=== PATIENT | female | born 1985 | race American Indian/Alaskan Native ===

== ENCOUNTER 2016-09-02 20:15 | Emergency (ER) | payer BC ==
[2016-09-02 21:13] LABS: Basophils % (Auto) 0.4 % (0.0-1.8); Eosinophils % (Auto) 3.8 % (0.0-4.3); Hematocrit 40.6 % (30.3-42.9); Hemoglobin 13.8 gm/dl (10.1-14.3); Mean Corpuscular HGB Conc 34 % (30-34); Mean Corpuscular Hemoglobin 34 pg (28-32); Mean Corpuscular Volume 101 fl (79-97); Platelet Count 167 K/mm3 (140-440); Red Blood Count 4.03 M/mm3 (3.65-5.03); Red Cell Distribution Width 12.5 % (13.2-15.2); White Blood Count 6.7 K/mm3 (4.5-11.0)
[2016-09-02 21:29] LABS: Anion Gap 18 mmol/L; Blood Urea Nitrogen 15 mg/dL (7-17); Calcium 9.3 mg/dL (8.4-10.2); Carbon Dioxide 24 mmol/L (22-30); Glucose 75 mg/dL (65-100); Potassium 3.4 mmol/L (3.6-5.0); Sodium 140 mmol/L (137-145)
[2016-09-03 00:38] VITALS: BP 101/64
[2016-09-03 00:59] LABS: Bacteria,Urine 1+ /HPF (Negative); Bilirubin,Urine NEG (Negative); Blood,Urine NEG (Negative); Ketones,Urine NEG (Negative); Leukocyte Esterase,Urine NEG (Negative); Mucus,Urine 3+ /HPF; Nitrite,Urine POS (Negative); Protein,Urine <15 mg/dL mg/dL (Negative); Urobilinogen,Urine < 2.0 mg/dL (<2.0)
[2016-09-03] MEDS ORDERED: TYLENOL PO ONE (01:47)
--- NOTE | 2016-09-04 00:15 | ED Elopement Review ---
ED Pt Elopement review - Results review Lab results: Laboratory Tests 09/02/16 09/02/16 09/03/16 20:54 20:54 00:12 WBC 6.7 RBC 4.03 Hgb 13.8 Hct 40.6 MCV 101 H MCH 34 H MCHC 34 RDW 12.5 L Plt Count 167 Lymph % (Auto) 38.4 H [place] % (Auto) 8.7 H Eos % (Auto) 3.8 Baso % (Auto) 0.4 Lymph # 2.6 [place] # 0.6 Eos # 0.3 Baso # 0.0 Seg Neutrophils % 48.7 Seg Neutrophils # 3.2 Sodium 140 Potassium 3.4 L Chloride 101.0 Carbon Dioxide 24 Anion Gap 18 BUN 15 Creatinine 0.4 L Estimated GFR > 60 BUN/Creatinine Ratio 37.50 Glucose 75 Calcium 9.3 Urine Color Yellow Urine Turbidity Slightly-cloudy Urine pH 6.0 Ur Specific [place] 1.021 Urine Protein <15 mg/dl Urine Glucose (UA) Neg Urine Ketones Neg Urine Blood Neg Urine Nitrite Pos Urine Bilirubin Neg Urine Urobilinogen < 2.0 Ur Leukocyte Esterase Neg Urine WBC (Auto) 8.0 H Urine RBC (Auto) 3.0 U Epithel Cells (Auto) 2.0 Urine Bacteria (Auto) 1+ Calcium Oxalate Crystal Few Urine Mucus 3+ Urine HCG, Qual Negative - Call Back decision Pt Call Back Decision: No action required
== END 2016-09-03 00:35 | disposition left against medical advice (07) ==
LOC: ED 20:15
DX: R10.9 Unspecified abdominal pain (principal); M54.6 Pain in thoracic spine; J45.909 Unspecified asthma, uncomplicated; F17.200 Nicotine dependence, unspecified, uncomplicated; Z53.21 Procedure and treatment not carried out due to patient leaving prior to being seen by health care provider
CPT/HCPCS: 36415; 80048; 81001; 81025; 85025

== ENCOUNTER 2016-09-15 17:30 | Emergency (ER) | payer BC ==
[2016-09-15 19:52] LABS: Basophils % (Auto) 0.7 % (0.0-1.8); Eosinophils % (Auto) 2.5 % (0.0-4.3); Hematocrit 39.7 % (30.3-42.9); Hemoglobin 13.8 gm/dl (10.1-14.3); Mean Corpuscular HGB Conc 35 % (30-34); Mean Corpuscular Hemoglobin 35 pg (28-32); Mean Corpuscular Volume 101 fl (79-97); Platelet Count 189 K/mm3 (140-440); Red Blood Count 3.93 M/mm3 (3.65-5.03); Red Cell Distribution Width 11.9 % (13.2-15.2); White Blood Count 6.8 K/mm3 (4.5-11.0)
[2016-09-15 19:53] LABS: Bilirubin,Urine NEG (Negative); Blood,Urine SM (Negative); Ketones,Urine NEG (Negative); Leukocyte Esterase,Urine NEG (Negative); Mucus,Urine 1+ /HPF; Nitrite,Urine NEG (Negative); Protein,Urine <15 mg/dL mg/dL (Negative); Urobilinogen,Urine < 2.0 mg/dL (<2.0); WBC,Urine < 1.0 /HPF (0.0-6.0)
[2016-09-15 20:10] LABS: Alanine Aminotransferase 8 units/L (7-56); Albumin 4.8 g/dL (3.9-5); Albumin/Globulin Ratio 2.3 %; Alkaline Phosphatase 59 units/L (35-129); Anion Gap 17 mmol/L; Blood Urea Nitrogen 16 mg/dL (7-17); Calcium 9.2 mg/dL (8.4-10.2); Carbon Dioxide 27 mmol/L (22-30); Chloride 102.4 mmol/L (98-107); Glucose 87 mg/dL (65-100); Potassium 3.5 mmol/L (3.6-5.0); Sodium 143 mmol/L (137-145); Total Protein 6.9 g/dL (6.3-8.2)
[2016-09-15] MEDS ORDERED: DILAUDID IV ONE (23:59)
[2016-09-15] MEDS ORDERED: ZOFRAN IV ONE (23:59)
[2016-09-15] MEDS ORDERED: TORADOL IV ONE (23:59)
--- NOTE | 2016-09-15 23:59 | Emergency Department Report ---
ED General Adult HPI - General Chief complaint: Abdominal Pain Stated complaint: BLOOD IN URINE Time Seen by Provider: 09/15/16 23:52 Source: patient, RN notes reviewed, old records reviewed Mode of arrival: Ambulatory Limitations: No Limitations - History of Present Illness Initial comments: This is a 31-year-old female. She is previously unknown to me. Reports a past medical history of nephrolithiasis, has been found to have possible nephrocalcinosis in the past. The patient presents to the ER with bilateral lower back pain. She describes hematuria. She admits to 1-2 episodes of nonbloody, nonbilious emesis. There is mild lower back pain. The pain does not radiate anywhere. There is no fever. Patient denies irritative and obstructive urinary symptoms. The pain is improved with hydromorphone and Toradol. The patient had a CT scan at this hospital January 2016 which was demonstrative bilateral renal calculi, no evidence of obstruction. 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 The patient also complains of pain and swelling to the left great toe, she reports that she has an ingrown toenail. -: Gradual Location: back, left, lower extremity Quality: aching Improves with: medication Worsens with: movement Associated Symptoms: nausea/vomiting. denies: confusion, chest pain, cough, diaphoresis, shortness of breath, syncope, weakness - Related Data Home Medications Medication Instructions Recorded Confirmed Last Taken ALBUTEROL Inhaler [ProAir HFA 2 puff INHALATION Q6H PRN 06/23/16 06/23/16 Unknown Inhaler] Previous Rx's Medication Instructions Recorded Last Taken Type Acetaminophen/Codeine [Tylenol 1 tab PO Q4HR PRN #20 tablet 06/23/16 Unknown Rx /Codeine # 3 tab] Cephalexin [Keflex] 500 mg PO Q6HR #20 capsule 09/16/16 Unknown Rx Ketorolac [Toradol] 10 mg PO Q6H PRN #20 tablet 09/16/16 Unknown Rx Ondansetron [Zofran Odt] 4 mg PO QID PRN #20 tab.rapdis 09/16/16 Unknown Rx oxyCODONE [Roxicodone] 5 mg PO Q6HR PRN #15 tablet 09/16/16 Unknown Rx Allergies Allergy/AdvReac Type Severity Reaction Status Date / Time No Known Allergies Allergy Verified 06/23/16 08:42 ED Review of Systems ROS: Stated complaint: BLOOD IN URINE Other details as noted in HPI ED Past Medical Hx - Past Medical History Previous Medical History?: Yes Hx Renal Disease: Yes Hx Kidney Stones: Yes Hx Asthma: Yes Additional medical history: kidney stones - Surgical History Past Surgical History?: Yes Additional Surgical History: csections x 4. TUBAL LIGATION - Social History Smoking Status: Current Every Day Smoker Substance Use Type: None - Medications Home Medications: Home Medications Medication Instructions Recorded Confirmed Last Taken Type ALBUTEROL Inhaler [ProAir HFA 2 puff INHALATION Q6H PRN 06/23/16 06/23/16 Unknown History Inhaler] Acetaminophen/Codeine [Tylenol 1 tab PO Q4HR PRN #20 tablet 06/23/16 Unknown Rx /Codeine # 3 tab] Cephalexin [Keflex] 500 mg PO Q6HR #20 capsule 09/16/16 Unknown Rx Ketorolac [Toradol] 10 mg PO Q6H PRN #20 tablet 09/16/16 Unknown Rx Ondansetron [Zofran Odt] 4 mg PO QID PRN #20 tab.rapdis 09/16/16 Unknown Rx oxyCODONE [Roxicodone] 5 mg PO Q6HR PRN #15 tablet 09/16/16 Unknown Rx ED Physical Exam - General Limitations: No Limitations General appearance: alert, in distress - Head Head exam: Present: atraumatic, normocephalic - Eye Eye exam: Present: normal appearance, EOMI. Absent: nystagmus - ENT ENT exam: Present: normal exam, normal orophraynx, mucous membranes moist, normal external ear exam - Neck Neck exam: Present: normal inspection, full ROM. Absent: tenderness, meningismus - Respiratory Respiratory exam: Present: normal lung sounds bilaterally. Absent: respiratory distress, wheezes, rales, rhonchi, stridor, chest wall tenderness, accessory muscle use, decreased breath sounds, prolonged expiratory - Cardiovascular Cardiovascular Exam: Present: regular rate, normal rhythm, normal heart sounds. Absent: bradycardia, tachycardia, irregular rhythm, systolic murmur, diastolic murmur, rubs, gallop - GI/Abdominal GI/Abdominal exam: Present: soft, normal bowel sounds. Absent: distended, tenderness, guarding, rebound, rigid, pulsatile mass - Extremities Exam Extremities exam: Present: full ROM (2+ pulses noted in 4 extremities. The compartments are soft. No redness, pus, streaking, crepitus, with the exception of minimal left great toe redness.), normal capillary refill, other ( there is an ingrown toenail noted in the left great toe. There is minimal swelling. There is minimal redness. There is no streaking. The compartments are soft. There is no palpable cord.). Absent: pedal edema, joint swelling, calf tenderness - Back Exam Back exam: Present: normal inspection, full ROM, paraspinal tenderness. Absent : tenderness, CVA tenderness (R), CVA tenderness (L) - Neurological Exam Neurological exam: Present: alert, oriented X3, other (Extraocular movements intact. Tongue midline. No facial droop. Facial sensation intact to light touch in the V1, V2, V3 distribution bilaterally. 5 and 5 strength in 4 extremities.. Sensation is intact to light touch in 4 extremities.). Absent: motor sensory deficit - Psychiatric Psychiatric exam: Present: anxious - Skin Skin exam: Present: warm, dry, intact, normal color. Absent: rash ED Course Vital Signs 09/15/16 09/16/16 19:37 00:27 Temperature 98.5 F 98.1 F Pulse Rate 90 95 H Respiratory 20 18 Rate Blood Pressure 103/67 Blood Pressure 110/72 [Right] O2 Sat by Pulse 100 99 Oximetry - Reevaluation(s) Reevaluation #1: 09/16/16 00:53 Differential diagnosis: Renal colic, medullary calcinosis, urinary tract infection, mechanical back pain, ingrown left great toe Assessment and plan: 31-year-old female with reported history of kidney stones. She is afebrile with reassuring vital signs. She is tolerating liquid feeds. Her laboratory studies are unremarkable, urinalysis is not consistent with urinary tract infection. Her abdomen is soft and benign, with no rebound, guarding or peritoneal signs. Has minimal left ingrown toenail. The patient felt improved after symptomatically therapy. She will be discharged with pain medication, nausea medication, instructions to follow up with outpatient podiatry and primary care. She can also follow up with urology at her convenience. I don't believe she requires advanced imaging today her current clinical presentation and status. ED Medical Decision Making - Lab Data Result diagrams: 09/15/16 19:42 09/15/16 19:42 Vital Signs 09/15/16 09/16/16 19:37 00:27 Temperature 98.5 F 98.1 F Pulse Rate 90 95 H Respiratory 20 18 Rate Blood Pressure 103/67 Blood Pressure 110/72 [Right] O2 Sat by Pulse 100 99 Oximetry Lab Results 09/15/16 09/15/16 09/15/16 Range/Units 19:00 19:42 19:42 WBC 6.8 (4.5-11.0) K/mm3 RBC 3.93 (3.65-5.03) M/mm3 Hgb 13.8 (10.1-14.3) gm/dl Hct 39.7 (30.3-42.9) % MCV 101 H (79-97) fl MCH 35 H (28-32) pg MCHC 35 H (30-34) % RDW 11.9 L (13.2-15.2) % Plt Count 189 (140-440) K/mm3 Lymph % (Auto) 35.2 H (13.4-35.0) % [place] % (Auto) 4.7 (0.0-7.3) % Eos % (Auto) 2.5 (0.0-4.3) % Baso % (Auto) 0.7 (0.0-1.8) % Lymph # 2.4 (1.2-5.4) K/mm3 [place] # 0.3 (0.0-0.8) K/mm3 Eos # 0.2 (0.0-0.4) K/mm3 Baso # 0.0 (0.0-0.1) K/mm3 Seg Neutrophils % 56.9 (40.0-70.0) % Seg Neutrophils # 3.9 (1.8-7.7) K/mm3 Sodium 143 (137-145) mmol/L Potassium 3.5 L (3.6-5.0) mmol/L Chloride 102.4 (98-107) mmol/L Carbon Dioxide 27 (22-30) mmol/L Anion Gap 17 mmol/L BUN 16 (7-17) mg/dL Creatinine 0.5 L (0.7-1.2) mg/dL Estimated GFR > 60 ml/min BUN/Creatinine Ratio 32.00 % Glucose 87 (65-100) mg/dL Calcium 9.2 (8.4-10.2) mg/dL Total Bilirubin 0.20 (0.1-1.2) mg/dL AST 12 (5-40) units/L ALT 8 (7-56) units/L Alkaline Phosphatase 59 (35-129) units/L Total Protein 6.9 (6.3-8.2) g/dL Albumin 4.8 (3.9-5) g/dL Albumin/Globulin Ratio 2.3 % Urine Color Yellow (Yellow) Urine Turbidity Clear (Clear) Urine pH 5.0 (5.0-7.0) Ur Specific [place] 1.026 (1.003-1.030) Urine Protein <15 mg/dl (Negative) mg/dL Urine Glucose (UA) Neg (Negative) mg/dL Urine Ketones Neg (Negative) mg/dL Urine Blood Sm (Negative) Urine Nitrite Neg (Negative) Urine Bilirubin Neg (Negative) Urine Urobilinogen < 2.0 (<2.0) mg/dL Ur Leukocyte Esterase Neg (Negative) Urine WBC (Auto) < 1.0 (0.0-6.0) /HPF Urine RBC (Auto) 1.0 (0.0-6.0) /HPF U Epithel Cells (Auto) 3.0 (0-13.0) /HPF Calcium Oxalate Crystal Few Urine Mucus 1+ /HPF Urine HCG, Qual Negative (Negative) Critical care attestation.: If time is entered above; I have spent that time in minutes in the direct care of this critically ill patient, excluding procedure time. ED Disposition Clinical Impression: Back pain, Toe pain, left Disposition: DISCHARGED TO HOME OR SELFCARE Is pt being admited?: No Does the pt Need Aspirin: No Condition: Stable Instructions: Renal Colic (ED), Ingrown Nail (ED) Additional Instructions: Laboratory studies were unremarkable. They are not consistent with or urinary tract infection. Take the pain medication, nausea medication, antibiotic therapy as directed. Apply warm soaks to the left great toe as often as as needed. Follow up with a health director within the next week for the left great toe. Dr. Monaco is a local health director. Return to the ER right away with new pain, worsened pain, migration of pain, fevers or chills, intractable nausea or vomiting, inability to tolerate liquid feeds. If taking oxycodone, do not drive, consume alcohol, or make important decisions. Referrals: TREVON LEO MD [Primary Care Provider] - 3-5 Days EDEN MONACO DPM [Staff Physician] - 3-5 Days NAZARIO FELIX MD [Staff Physician] - 3-5 Days
[2016-09-16] MEDS ORDERED: ROXICODONE PO ONE (00:34)
[2016-09-16 01:45] VITALS: BP 112/76
== END 2016-09-16 01:43 | disposition home or self-care (01) ==
LOC: ED 17:30
DX: M54.5 Low back pain (principal); M79.675 Pain in left toe(s); J45.909 Unspecified asthma, uncomplicated; F17.200 Nicotine dependence, unspecified, uncomplicated
CPT/HCPCS: 36415; 80053; 81001; 81025; 85025; 96374; 96375; 99283; J1170; J1885; J2405

== ENCOUNTER 2016-09-16 07:30 | Emergency (ER) | payer BC ==
--- NOTE | 2016-09-16 10:51 | Emergency Department Report ---
- General Chief complaint: Extremity Problem,Nontraumatic Stated complaint: LFT FOOT SWOLLEN Time Seen by Provider: 09/16/16 10:13 Source: patient, family Mode of arrival: Ambulatory Limitations: No Limitations - History of Present Illness Initial comments: Patient here complaining of Lt great toe pain. She was seen in the emergency room last night for renal colic and left toe pain. Patient was given medication for pain. She was given prescription for Roxicodone, Toradol and Keflex. She was told to follow up with Dr. Monaco is a machinist and also Dr. Osvaldo Davenport who is her primary care physician in 3-5 days. Patient said her pain to her left great toe is unbearable and she had to come back. She says she started on the Toradol and Keflex but she went to [facility] on [address] and he said that didn't that they do not have any Roxicodone said she was unable to take any. She said that she is going to try to find a pharmacy that fill this. Denies any numbness or tingling to toe. Reports that left great toe pain is 9 out of 10 and throbbing. She said it's getting worst and her foot is red. She was told to come back to the emergency room if she has increasing pain so she says associated. Denies any fever or chills. Patient said she took ingrown toenail out 3 days ago at home with tweezer. He said it started getting infected. MD complaint: abscess/boil Onset/Timin -: days(s) Tetanus Up to Date: no Location: L foot (Lt great toe infected and painfil) Severity: severe Severity scale (0 -10): 9 Quality: other (Throbbing) Consistency: constant Improves with: immobilization, medication, rest Worsens with: palpation, movement Context: other (infection from removing ingrown toenail) Associated symptoms: athralgias Treatments Prior to Arrival: antibiotic, prescription analgesic - Related Data Home Medications Medication Instructions Recorded Confirmed Last Taken ALBUTEROL Inhaler [ProAir HFA 2 puff INHALATION Q6H PRN 06/23/16 06/23/16 Unknown Inhaler] Previous Rx's Medication Instructions Recorded Last Taken Type Acetaminophen/Codeine [Tylenol 1 tab PO Q4HR PRN #20 tablet 06/23/16 Unknown Rx /Codeine # 3 tab] Cephalexin [Keflex] 500 mg PO Q6HR #20 capsule 09/16/16 Unknown Rx Ondansetron [Zofran Odt] 4 mg PO QID PRN #20 tab.rapdis 09/16/16 Unknown Rx oxyCODONE [Roxicodone] 5 mg PO Q6HR PRN #15 tablet 09/16/16 Unknown Rx Allergies Allergy/AdvReac Type Severity Reaction Status Date / Time No Known Allergies Allergy Verified 06/23/16 08:42 Abscess Boil HPI - HPI Chief Complaint: Extremity Problem,Nontraumatic Stated Complaint: LFT FOOT SWOLLEN Time Seen by Provider: 09/16/16 10:13 Home Medications: Home Medications Medication Instructions Recorded Confirmed Last Taken ALBUTEROL Inhaler [ProAir HFA 2 puff INHALATION Q6H PRN 06/23/16 06/23/16 Unknown Inhaler] Previous Rx's Medication Instructions Recorded Last Taken Type Acetaminophen/Codeine [Tylenol 1 tab PO Q4HR PRN #20 tablet 06/23/16 Unknown Rx /Codeine # 3 tab] Cephalexin [Keflex] 500 mg PO Q6HR #20 capsule 09/16/16 Unknown Rx Ondansetron [Zofran Odt] 4 mg PO QID PRN #20 tab.rapdis 09/16/16 Unknown Rx oxyCODONE [Roxicodone] 5 mg PO Q6HR PRN #15 tablet 09/16/16 Unknown Rx Allergies/Adverse Reactions: Allergies Allergy/AdvReac Type Severity Reaction Status Date / Time No Known Allergies Allergy Verified 06/23/16 08:42 ED Review of Systems ROS: Stated complaint: LFT FOOT SWOLLEN Other details as noted in HPI Comment: All other systems reviewed and negative Constitutional: denies: chills, fever Eyes: denies: eye pain, vision change ENT: denies: ear pain, throat pain, congestion Respiratory: no symptoms reported Cardiovascular: denies: chest pain, palpitations, syncope, paroxysmal nocturnal dyspnea Gastrointestinal: denies: abdominal pain, nausea, vomiting, constipation, hematemesis Musculoskeletal: joint swelling, arthralgia. denies: back pain Skin: other (abscess). denies: rash Neurological: denies: headache, weakness, numbness, paresthesias, confusion, abnormal gait, vertigo ED Past Medical Hx - Past Medical History Previous Medical History?: Yes Hx Renal Disease: Yes Hx Kidney Stones: Yes Hx Asthma: Yes Additional medical history: kidney stones - Surgical History Past Surgical History?: Yes Additional Surgical History: csections x 4. TUBAL LIGATION - Family History Family history: hypertension - Social History Smoking Status: Current Every Day Smoker Substance Use Type: None - Medications Home Medications: Home Medications Medication Instructions Recorded Confirmed Last Taken Type ALBUTEROL Inhaler [ProAir HFA 2 puff INHALATION Q6H PRN 06/23/16 06/23/16 Unknown History Inhaler] Acetaminophen/Codeine [Tylenol 1 tab PO Q4HR PRN #20 tablet 06/23/16 Unknown Rx /Codeine # 3 tab] Cephalexin [Keflex] 500 mg PO Q6HR #20 capsule 09/16/16 Unknown Rx Ondansetron [Zofran Odt] 4 mg PO QID PRN #20 tab.rapdis 09/16/16 Unknown Rx oxyCODONE [Roxicodone] 5 mg PO Q6HR PRN #15 tablet 09/16/16 Unknown Rx ED Physical Exam - General Limitations: No Limitations General appearance: alert, in no apparent distress - Head Head exam: Present: atraumatic, normocephalic, normal inspection - Eye Eye exam: Present: normal appearance, PERRL, EOMI Pupils: Present: normal accommodation - Neck Neck exam: Present: normal inspection, full ROM. Absent: tenderness, meningismus, lymphadenopathy - Respiratory Respiratory exam: Present: normal lung sounds bilaterally, rhonchi. Absent: respiratory distress, accessory muscle use - Cardiovascular Cardiovascular Exam: Present: regular rate, normal rhythm - GI/Abdominal GI/Abdominal exam: Present: soft, normal bowel sounds. Absent: distended, tenderness, guarding, rebound, rigid - Extremities Exam Extremities exam: Present: normal inspection, full ROM, tenderness (left great toe erythema and tender to palpate), normal capillary refill, joint swelling ( great toe), other (no clubbing cyanosis. Swelling to left great toe. 2+ pedal pulses. No neurovascular compromise). Absent: pedal edema, calf tenderness - Back Exam Back exam: Present: normal inspection, full ROM - Neurological Exam Neurological exam: Present: alert, oriented X3, normal gait - Psychiatric Psychiatric exam: Present: normal affect, normal mood - Skin Skin exam: Present: warm, dry, intact, erythema (left great toe) - Expanded Skin Exam Expanded Type of lesion: Present: abscess (left great toe) Distribution of rash: other (left great toe) Description of rash: Present: tenderness, erythematous, swelling, fluctuant ( mild fluctuance). Absent: purpuic, discharge ED Course Vital Signs 09/16/16 09/16/16 07:39 13:02 Temperature 97.8 F Pulse Rate 78 62 Respiratory 18 Rate Blood Pressure 91/57 Blood Pressure 94/58 [Left] O2 Sat by Pulse 100 97 Oximetry - Reevaluation(s) Reevaluation #1: 09/16/16 12:34 Patient stable throughout ED course. She received Rocephin 1 g IM empirically for infection. She also received tetanus 0.5 ml for update - I & D Left Toe Type of Procedure: Complex Site: left great toe Blade Size: 11 I & D Procedure: betadine prep, sterile drapes applied, sterile dressing applied Progress: See no block. Digital block procedure. Less than 0.25 cm incision made to distal in her left great toe. Small amount of pus. Patient tolerated procedure well and clean dry dressing placed the site. Shee was given tetanus vaccine. no need for packing. - Nerve Block Consent Obtained: verbal consent Time Out Performed: Yes (Romieadaleksandar) Local Anesthetic Used: Marcaine 0.5% (without epinephrine.) Side: left Nerve Blocks: digital Procedure Successful: Yes Complications: none Patient Tolerated Procedure: well, no complications Additional Comments: Left great toe without any ingrown toenail with infection. Small amount of pus from the area. Patient tolerated procedure well ED Medical Decision Making - Medical Decision Making ED course: Patient here after being seen yesterday and treated for renal colic and infected toe. Return to the emergency room complaining that she is having left great toe pain and increased redness and she was unable to fill her Roxicodone. She says she took the first dose of Keflex and Toradol. Patient had ingrown. Toenail she removed herself. Her toe was found to be cellulitis with abscess. Incision and drainage procedure done see procedure note for detail. Patient felt better after digital block. She was given Rocephin 1 g IM and her tetanus shot Boostrix 0.5 mL IM. Patient discharged home to follow- up with her primary care physician in 2-3 days days and also to follow-up with Dr. Monaco is a foot doctor 2-3 days. I instructed her that she can continue with medication that was ordered for her and make sure she increase her fluid intake and keep affected area clean and dry. Also instructed her to apply warm soaks to the area. Patient discharged home with her family in stable condition and pain level II (0 out of 10. Critical care attestation.: If time is entered above; I have spent that time in minutes in the direct care of this critically ill patient, excluding procedure time. ED Disposition Clinical Impression: Cellulitis and abscess of toe of left foot, Encounter for incision and drainage procedure Disposition: DISCHARGED TO HOME OR SELFCARE Is pt being admited?: No Does the pt Need Aspirin: No Condition: Stable Instructions: Abscess Incision and Drainage (ED), Arthralgia (ED) Additional Instructions: Please keep affected area clean and dry Please do not drive or operate machinery while taking and Roxicodone that was prescribed yesterday. Follow-up with Dr. Ellison any primary care physician in 2-3 days. Apply warm soaks to affected area 3-5 times a day. take Antibiotic as prescribed previously. Please stop taking Toradol as this can cause kidney problems and it's noted in the past medical history have a history of kidney disease. take Tylenol and told to get the prescription filled for oxycodone Referrals: OSVALDO DAVENPORT MD [Primary Care Provider] - 2-3 Days EDEN MONACO DPM [Staff Physician] - 2-3 Days Forms: Work/School Release Form(ED)
[2016-09-16] MEDS ORDERED: MARCAINE 0.5% INFILTRATI ONE (10:57)
[2016-09-16] MEDS ORDERED: BENADRYL ONE (11:55)
[2016-09-16] MEDS ORDERED: BENADRYL IM ONE (11:59)
[2016-09-16] MEDS ORDERED: XYLOCAINE 1% MPF 5 mL INFILTRATI ONE (12:14)
[2016-09-16] MEDS ORDERED: ROCEPHIN IM STA (12:14)
[2016-09-16] MEDS ORDERED: BOOSTRIX IM ONE (12:19)
[2016-09-16 13:03] VITALS: BP 94/58
== END 2016-09-16 13:02 | disposition home or self-care (01) ==
LOC: ED 07:30
DX: L03.032 Cellulitis of left toe (principal); J45.909 Unspecified asthma, uncomplicated; F17.200 Nicotine dependence, unspecified, uncomplicated
CPT/HCPCS: 10061; 90471; 90715; 96372; 99282; J0696; J1200

== ENCOUNTER 2017-06-15 08:34 | Emergency (ER) | payer BC | END 2017-06-15 09:25 | disposition left against medical advice (07) | LOC: ED 08:34 | DX: R10.9 Unspecified abdominal pain (principal); Z53.21 Procedure and treatment not carried out due to patient leaving prior to being seen by health care provider ==

== ENCOUNTER 2017-06-23 16:29 | Emergency (ER) | payer BC ==
--- NOTE | 2017-06-23 17:37 | Emergency Department Report ---
Blank Doc - Documentation Documentation: Patient is a 32-year-old female who is presenting with left flank pain for the past 2 days. Patient states she's been nauseous pain is 10 out of 10 in severity. Patient has a history of kidney stones. Patient will be moved to a treatment room and given IV fluids and pain meds and will be sent for an ultrasound to rule out hydronephrosis
[2017-06-23] MEDS ORDERED: ZOFRAN IV ONE (17:38)
[2017-06-23] MEDS ORDERED: NACL 0.9% 1000 ML 1,000 ML IV ONE (17:38)
[2017-06-23] MEDS ORDERED: TORADOL IV ONE (17:38)
[2017-06-23] MEDS: MORPHINE IV ONE ×2 (17:57→19:13)
[2017-06-23 18:00] LABS: HCG Qualitative,Urine Negative (Negative)
[2017-06-23 18:04] LABS: Bilirubin,Urine NEG (Negative); Blood,Urine LG (Negative); Color,Urine Yellow (Yellow); Mucus,Urine 2+ /HPF; Nitrite,Urine NEG (Negative); Protein,Urine <15 mg/dL mg/dL (Negative); Urobilinogen,Urine < 2.0 mg/dL (<2.0)
[2017-06-23 18:22] LABS: Basophils % (Auto) 0.2 % (0.0-1.8); Eosinophils # (Auto) 0.1 K/mm3 (0.0-0.4); Eosinophils % (Auto) 1.3 % (0.0-4.3); Hematocrit 36.2 % (30.3-42.9); Hemoglobin 12.2 gm/dl (10.1-14.3); Lymphocytes # (Auto) 1.2 K/mm3 (1.2-5.4); Lymphocytes % (Auto) 11.1 % (13.4-35.0); Mean Corpuscular HGB Conc 34 % (30-34); Mean Corpuscular Hemoglobin 34 pg (28-32); Mean Corpuscular Volume 101 fl (79-97); Monocytes # (Auto) 0.8 K/mm3 (0.0-0.8); Monocytes % (Auto) 7.6 % (0.0-7.3); Platelet Count 172 K/mm3 (140-440); Red Blood Count 3.58 M/mm3 (3.65-5.03); Red Cell Distribution Width 11.9 % (13.2-15.2)
[2017-06-23 18:42] LABS: BUN/Creatinine Ratio 54; Blood Urea Nitrogen 27 mg/dL (7-17); Calcium 8.3 mg/dL (8.4-10.2); Hemolysis Index 29
--- NOTE | 2017-06-23 19:13 | Ultrasound Report ---
FINAL REPORT EXAM: US RENAL LT HISTORY: probable kidney stones, pain . Left flank pain TECHNIQUE: Ultrasound of the left kidney. The clinician requests left kidney ultrasound only. PRIORS: Ultrasound kidneys 01/23/2016 FINDINGS: The left kidney appears to be normal in size and has normal cortical echogenicity and thickness. The left kidney measures 12.7 cm in craniocaudal length. No evidence for calculi, hydronephrosis, or solid mass is seen in the left. A calculus seen previously in the midpole left kidney is no longer visualized. There is new moderate left-sided hydronephrosis. No definite obstructing calculi or nonobstructing calculi are noted in the left kidney. The urinary bladder shows no intraluminal abnormality or wall thickening. IMPRESSION: 1. New moderate left-sided hydronephrosis. 2. No evidence for obstructing or nonobstructing calculi involving the left kidney is seen. A previously seen calculus in the midpole left kidney is no longer visualized.
--- NOTE | 2017-06-23 19:36 | Emergency Department Report ---
ED Abdominal Pain HPI - General Chief Complaint: Abdominal Pain Stated Complaint: FLANK PAIN Time Seen by Provider: 06/23/17 17:19 Source: patient Mode of arrival: Wheelchair Limitations: No Limitations - History of Present Illness Initial Comments: 32-year-old female comes in for abdominal pain with one set of noon today with left flank pain. Patient reports that she's been to the hospital 3 times this month for abdominal pain. Patient denies any fever but complains of chills and vomiting. She complains of blood in her urine. She reports she is drinking well she tried taking [id number] Azo. She admits to urinary frequency and dysuria. She reports her last menstrual period was 06/02/2017. She reports now her pain is a 6 out of 10 where was 10 out of 10 at triage. She does have a past medical history of kidney stones and asthma. MD Complaint: abdominal pain -: week(s) (2) Location: L flank Radiation: suprapubic Migration to: epigastric Severity scale (0 -10): 6 Quality: aching, sharp, burning Consistency: colicky Improves With: nothing Worsens With: other (voiding) Associated Symptoms: nausea, vomiting, chills - Related Data Home Medications Medication Instructions Recorded Confirmed Last Taken ALBUTEROL Inhaler [ProAir HFA 2 puff INHALATION Q6H PRN 06/23/16 06/23/16 Unknown Inhaler] Previous Rx's Medication Instructions Recorded Last Taken Type Acetaminophen/Codeine [Tylenol 1 tab PO Q4HR PRN #20 tablet 06/23/16 Unknown Rx /Codeine # 3 tab] Cephalexin [Keflex] 500 mg PO Q6HR #20 capsule 09/16/16 Unknown Rx Ondansetron [Zofran Odt] 4 mg PO QID PRN #20 tab.rapdis 09/16/16 Unknown Rx Ondansetron [Zofran Odt] 4 mg PO Q8HR #12 tab.rapdis 06/23/17 Unknown Rx oxyCODONE [Roxicodone TAB] 5 mg PO Q6HR PRN #15 tablet 06/23/17 Unknown Rx Allergies Allergy/AdvReac Type Severity Reaction Status Date / Time No Known Allergies Allergy Verified 06/23/17 16:33 ED Review of Systems ROS: Stated complaint: FLANK PAIN Other details as noted in HPI Constitutional: denies: chills, fever Eyes: denies: eye pain, eye discharge, vision change ENT: denies: ear pain, throat pain Respiratory: denies: cough, shortness of breath, wheezing Cardiovascular: denies: chest pain, palpitations Endocrine: no symptoms reported Gastrointestinal: abdominal pain, nausea, vomiting Genitourinary: urgency, dysuria, frequency, hematuria Musculoskeletal: denies: back pain, joint swelling, arthralgia Skin: denies: rash, lesions Neurological: denies: headache, weakness, paresthesias Psychiatric: denies: anxiety, depression Hematological/Lymphatic: denies: easy bleeding, easy bruising ED Past Medical Hx - Past Medical History Hx Renal Disease: Yes Hx Kidney Stones: Yes Hx Asthma: Yes Additional medical history: kidney stones - Surgical History Additional Surgical History: csections x 4. TUBAL LIGATION - Social History Smoking Status: Current Every Day Smoker Substance Use Type: None - Medications Home Medications: Home Medications Medication Instructions Recorded Confirmed Last Taken Type ALBUTEROL Inhaler [ProAir HFA 2 puff INHALATION Q6H PRN 06/23/16 06/23/16 Unknown History Inhaler] Acetaminophen/Codeine [Tylenol 1 tab PO Q4HR PRN #20 tablet 06/23/16 Unknown Rx /Codeine # 3 tab] Cephalexin [Keflex] 500 mg PO Q6HR #20 capsule 09/16/16 Unknown Rx Ondansetron [Zofran Odt] 4 mg PO QID PRN #20 tab.rapdis 09/16/16 Unknown Rx Ondansetron [Zofran Odt] 4 mg PO Q8HR #12 tab.rapdis 06/23/17 Unknown Rx oxyCODONE [Roxicodone TAB] 5 mg PO Q6HR PRN #15 tablet 06/23/17 Unknown Rx ED Physical Exam - General Limitations: No Limitations General appearance: alert, in no apparent distress - Head Head exam: Present: atraumatic, normocephalic - Eye Eye exam: Present: normal appearance - ENT ENT exam: Present: mucous membranes moist - Neck Neck exam: Present: normal inspection - Respiratory Respiratory exam: Present: normal lung sounds bilaterally. Absent: respiratory distress - Cardiovascular Cardiovascular Exam: Present: regular rate - GI/Abdominal GI/Abdominal exam: Present: soft, normal bowel sounds. Absent: distended, tenderness - Extremities Exam Extremities exam: Present: normal inspection - Back Exam Back exam: Present: normal inspection, CVA tenderness (L) - Neurological Exam Neurological exam: Present: alert, oriented X3 - Psychiatric Psychiatric exam: Present: normal affect, normal mood - Skin Skin exam: Present: warm, dry, intact, normal color. Absent: rash ED Course Vital Signs 06/23/17 06/23/17 16:33 17:57 Temperature 99 F Pulse Rate 120 H Respiratory 22 18 Rate Blood Pressure 137/71 O2 Sat by Pulse 97 Oximetry ED Medical Decision Making - Lab Data Result diagrams: 06/23/17 18:12 06/23/17 18:12 - Radiology Data Radiology results: report reviewed, image reviewed FINDINGS: The left kidney appears to be normal in size and has normal cortical echogenicity and thickness. The left kidney measures 12.7 cm in craniocaudal length. No evidence for calculi, hydronephrosis, or solid mass is seen in the left. A calculus seen previously in the midpole left kidney is no longer visualized. There is new moderate left-sided hydronephrosis. No definite obstructing calculi or nonobstructing calculi are noted in the left kidney. The urinary bladder shows no intraluminal abnormality or wall thickening. IMPRESSION: 1. New moderate left-sided hydronephrosis. 2. No evidence for obstructing or nonobstructing calculi involving the left kidney is seen. A previously seen calculus in the midpole left kidney is no longer visualized. - Medical Decision Making Been evaluated by this provider and Dr. Butler. Patient had an ultrasound done CBC BMP urinalysis urine hCG. Based on ultrasound appears patient had a kidney stone. She also has hydronephrosis of the left kidney I discussed the patient and refer her to clinical athletic instructor as well as her primary care provider. Carmelo patient and she needs to drink plenty of fluids such as water. Patient verbalized understanding Critical care attestation.: If time is entered above; I have spent that time in minutes in the direct care of this critically ill patient, excluding procedure time. ED Disposition Clinical Impression: Kidney stone on left side Disposition: DC-01 TO HOME OR SELFCARE Is pt being admited?: No Does the pt Need Aspirin: No Condition: Stable Instructions: Abdominal Pain (ED), Flank Pain (ED), Kidney Stones (ED) Additional Instructions: Please drink plenty of water. Do not operate heavy machinery while on pain medications. Please follow up with the primary care provider for further evaluation. I will also send you to a clinical athletic instructor as well for chronic kidney stones. Prescriptions: Ondansetron [Zofran Odt] 4 mg PO Q8HR #12 tab.rapdis oxyCODONE [Roxicodone TAB] 5 mg PO Q6HR PRN #15 tablet PRN Reason: Pain Referrals: PRIMARY CARE, [Primary Care Provider] - 3-5 Days JOVANNI MALCOLM MD [Staff Physician] - 3-5 Days Forms: Work/School Release Form(ED)
[2017-06-23 19:48] VITALS: BP 97/63
== END 2017-06-23 20:08 | disposition home or self-care (01) ==
LOC: ED 16:29
DX: N20.0 Calculus of kidney (principal); J45.909 Unspecified asthma, uncomplicated; F17.200 Nicotine dependence, unspecified, uncomplicated; Z98.51 Tubal ligation status
CPT/HCPCS: 36415; 76775; 80048; 81001; 81025; 85025; 96361; 96374; 96375; 99284; J1885; J2270; J2405; J7030

== ENCOUNTER 2018-02-05 15:37 | Emergency (ER) | payer BC ==
[2018-02-05 15:59] VITALS: BP 110/80
[2018-02-05] MEDS ORDERED: NACL 0.9% 1000 ML 1,000 ML IV ONE (15:59)
[2018-02-05] MEDS ORDERED: MORPHINE IV ONE (16:42)
[2018-02-05] MEDS ORDERED: ZOFRAN IV ONE (16:42)
[2018-02-05 16:43] LABS: Hematocrit 39.3 % (30.3-42.9); Hemoglobin 13.6 gm/dl (10.1-14.3); Mean Corpuscular HGB Conc 35 % (30-34); Mean Corpuscular Hemoglobin 36 pg (28-32); Mean Corpuscular Volume 103 fl (79-97); Platelet Count 192 K/mm3 (140-440); Red Blood Count 3.81 M/mm3 (3.65-5.03); Red Cell Distribution Width 12.2 % (13.2-15.2)
--- NOTE | 2018-02-05 16:44 | Emergency Department Report ---
ED Abdominal Pain HPI - General Chief Complaint: Abdominal Pain Stated Complaint: POSS KIDNEY STONE/SOB/CHEST PAIN Time Seen by Provider: 02/05/18 16:40 Source: patient Mode of arrival: Ambulatory Limitations: No Limitations - History of Present Illness MD Complaint: flank pain -: Gradual Location: L flank Severity: mild Improves With: nothing Worsens With: nothing Associated Symptoms: denies other symptoms Treatments Prior to Arrival: NSAIDs, prescription analgesics, other (HX STONES) - Related Data Home Medications Medication Instructions Recorded Confirmed Last Taken ALBUTEROL Inhaler (OR & NICU) 2 puff INHALATION Q6H PRN 06/23/16 06/23/16 Unknown [ProAir HFA Inhaler] Previous Rx's Medication Instructions Recorded Last Taken Type Acetaminophen/Codeine [Tylenol 1 tab PO Q4HR PRN #20 tablet 06/23/16 Unknown Rx /Codeine # 3 tab] Ondansetron [Zofran Odt] 4 mg PO QID PRN #20 tab.rapdis 09/16/16 Unknown Rx cephALEXin [Keflex] 500 mg PO Q6HR #20 capsule 09/16/16 Unknown Rx Ondansetron [Zofran Odt] 4 mg PO Q8HR #12 tab.rapdis 06/23/17 Unknown Rx oxyCODONE [Roxicodone TAB] 5 mg PO Q6HR PRN #15 tablet 06/23/17 Unknown Rx Allergies Allergy/AdvReac Type Severity Reaction Status Date / Time No Known Allergies Allergy Verified 02/05/18 16:45 ED Review of Systems ROS: Stated complaint: POSS KIDNEY STONE/SOB/CHEST PAIN Other details as noted in HPI Comment: All other systems reviewed and negative Constitutional: denies: chills, fever Eyes: denies: eye pain ENT: denies: ear pain, throat pain Respiratory: denies: cough, orthopnea Cardiovascular: denies: chest pain, dyspnea on exertion, orthopnea Endocrine: denies: excessive sweating, flushing, intolerance to cold, intolerance to heat Gastrointestinal: abdominal pain. denies: nausea, vomiting, diarrhea, constipation, hematemesis, melena Genitourinary: denies: urgency, dysuria, frequency, hematuria, discharge Musculoskeletal: denies: back pain Skin: denies: rash, lesions Neurological: denies: headache, weakness Psychiatric: denies: anxiety, depression Hematological/Lymphatic: denies: easy bleeding ED Past Medical Hx - Past Medical History Hx Renal Disease: Yes (?) Hx Kidney Stones: Yes Hx Asthma: Yes Additional medical history: kidney stones - Surgical History Additional Surgical History: csections x 4. TUBAL LIGATION, kidney stones lasered - Social History Smoking Status: Current Every Day Smoker Substance Use Type: None - Medications Home Medications: Home Medications Medication Instructions Recorded Confirmed Last Taken Type ALBUTEROL Inhaler (OR & NICU) 2 puff INHALATION Q6H PRN 06/23/16 06/23/16 Unknown History [ProAir HFA Inhaler] Acetaminophen/Codeine [Tylenol 1 tab PO Q4HR PRN #20 tablet 06/23/16 Unknown Rx /Codeine # 3 tab] Ondansetron [Zofran Odt] 4 mg PO QID PRN #20 tab.rapdis 09/16/16 Unknown Rx cephALEXin [Keflex] 500 mg PO Q6HR #20 capsule 09/16/16 Unknown Rx Ondansetron [Zofran Odt] 4 mg PO Q8HR #12 tab.rapdis 06/23/17 Unknown Rx oxyCODONE [Roxicodone TAB] 5 mg PO Q6HR PRN #15 tablet 06/23/17 Unknown Rx ED Physical Exam - General Limitations: No Limitations General appearance: alert - Head Head exam: Present: atraumatic - Eye Eye exam: Present: normal appearance Pupils: Present: normal accommodation - ENT ENT exam: Present: normal exam - Neck Neck exam: Present: normal inspection - Respiratory Respiratory exam: Present: normal lung sounds bilaterally - Cardiovascular Cardiovascular Exam: Present: regular rate - GI/Abdominal GI/Abdominal exam: Present: soft - Rectal Rectal exam: Present: deferred - Extremities Exam Extremities exam: Present: normal inspection, full ROM, normal capillary refill. Absent: tenderness - Back Exam Back exam: Present: normal inspection, full ROM. Absent: tenderness, CVA tenderness (R), CVA tenderness (L) - Neurological Exam Neurological exam: Present: alert, oriented X3, CN II-XII intact, normal gait - Psychiatric Psychiatric exam: Present: normal affect, normal mood - Skin Skin exam: Present: warm, dry, intact, normal color. Absent: rash ED Course Vital Signs 02/05/18 15:55 Temperature 97.9 F Pulse Rate 99 H Respiratory 18 Rate Blood Pressure 110/80 O2 Sat by Pulse 98 Oximetry - Reevaluation(s) Reevaluation #1: 02/05/18 19:46 CT NEG ON FLOMAX AT HOME UA N UPREG NEG DRUG SEEKING BEHAVIOUR TRAMADOL AND TORADOL DONT HELP HER PAIN MEDICATED ONCE WITH MORPHINE. SHE THEN WAS ASKING OVER AND OVER FOR PAIN MEDS DC HOME W USUAL PLAN OF CARE AND HOME MEDS. VSS AMBULATORY AND TAKING PO AT DISCHARGE. ED Medical Decision Making - Lab Data Result diagrams: 02/05/18 16:01 02/05/18 16:01 - Radiology Data Radiology results: report reviewed, image reviewed - Medical Decision Making CT NEG UA NEG U PREG NEG - Differential Diagnosis RO UTI; RO STONE; RO INFECTED STONE Critical care attestation.: If time is entered above; I have spent that time in minutes in the direct care of this critically ill patient, excluding procedure time. ED Disposition Clinical Impression: Renal colic on left side Disposition: DC-01 TO HOME OR SELFCARE Is pt being admited?: No Does the pt Need Aspirin: No Condition: Stable Instructions: Kidney Stones (ED), Renal Colic (ED) Additional Instructions: CONTINUE HOME MEDS FOLLOW UP WITH PCP IN AM FOLLOW UP UROLOGY MEDS PER PCP DIET TOLERATED Referrals: PRIMARY CARE, [Primary Care Provider] - 3-5 Days Time of Disposition: 19:33
[2018-02-05 16:59] LABS: Basophils % (Auto) 0.4 % (0.0-1.8); Eosinophils # (Auto) 0.2 K/mm3 (0.0-0.4); Eosinophils % (Auto) 3.6 % (0.0-4.3); Lymphocytes % (Auto) 30.8 % (13.4-35.0); Monocytes # (Auto) 0.4 K/mm3 (0.0-0.8)
[2018-02-05 18:01] LABS: Alanine Aminotransferase 11 units/L (7-56); Albumin 4.6 g/dL (3.9-5); BUN/Creatinine Ratio 40; Blood Urea Nitrogen 16 mg/dL (7-17); Calcium 9.2 mg/dL (8.4-10.2); Hemolysis Index 8; Lipase 21 units/L (13-60)
[2018-02-05 18:05] LABS: Basophils % (Manual) 0 % (0.0-1.8); Total Cells Counted 100
[2018-02-05 18:06] LABS: Bilirubin,Urine NEG (Negative); Blood,Urine NEG (Negative); Color,Urine Yellow (Yellow); Mucus,Urine FEW /HPF; Protein,Urine <15 mg/dL mg/dL (Negative); Urobilinogen,Urine < 2.0 mg/dL (<2.0)
[2018-02-05 18:06] LABS: Platelet Estimate Consistent w Auto; RBC Morphology Normal
[2018-02-05 18:21] LABS: HCG Qualitative,Urine Negative (Negative)
--- NOTE | 2018-02-05 19:29 | Cat Scan Report ---
FINAL REPORT EXAM: CT ABDOMEN PELVIS WO CON HISTORY: l flank pain TECHNIQUE: Axial helical imaging through the abdomen and pelvis with sagittal and coronal reformatted images obtained. Comparison: CT abdomen and pelvis dated January 13, 2016 FINDINGS: The lung bases are notable for a calcified granuloma in the right middle lobe similar in appearance to the previous study. The heart is normal size. The liver, spleen, pancreas, kidneys and adrenal glands are unremarkable in appearance. The gallbladder is mildly distended and unremarkable in appearance. The stomach is moderately to markedly distended and contains ingested contents and air. The bowel is otherwise normal caliber. There is no evidence of pneumoperitoneum or free fluid. The appendix is normal in appearance. The abdominal aorta is normal caliber. There is no evidence of pathologic intra-abdominal adenopathy by CT size criteria on this study without contrast. The urinary bladder is moderately distended and unremarkable in appearance. The uterus and adnexa are notable for evidence of previous tubal ligation. The bony structures are unremarkable in appearance. IMPRESSION: 1. No evidence of an acute intra-abdominal process. 2. Moderate to marked distention of the stomach which contains ingested contents and air. If there was no ingestion of a large meal prior to this study, gastric paresis or gastric outlet obstruction would need to be considered. 3. Status post tubal ligation.
== END 2018-02-05 19:40 | disposition home or self-care (01) ==
LOC: ED 15:37
DX: N23 Unspecified renal colic (principal); J45.909 Unspecified asthma, uncomplicated; F17.200 Nicotine dependence, unspecified, uncomplicated
CPT/HCPCS: 36415; 74176; 80053; 81001; 81025; 83690; 85007; 85025; 96374; 96375; 99284; J2270; J2405; J7030

== ENCOUNTER 2019-01-17 19:22 | Emergency (ER) | payer BC ==
[2019-01-17 19:59] VITALS: BP 104/75
[2019-01-17] MEDS ORDERED: PERCOCET 5/325 PO ONE (23:00)
--- NOTE | 2019-01-17 23:04 | Emergency Department Report ---
Abscess Boil HPI - HPI Chief Complaint: Skin/Abscess/Foreign Body Stated Complaint: FEVER/VOMITING/PAIN INNER RT THIGH Time Seen by Provider: 01/17/19 23:00 Duration: >1 Week Location: Perianal History: Yes Fever (101 yesterday), Yes Pain, Yes Previous History, No Purulent Drainage, No Numbness, No Foreign Body, No Insect Bite HPI: 43-year-old female comes in complaining of an abscess to the right inner thigh 2 weeks. Patient reports she had fever and vomited 2 today. Patient reports fever was yesterday to 101. Patient took ibuprofen 800 mg earlier today. Home Medications: Home Medications Medication Instructions Recorded Confirmed Last Taken ALBUTEROL Inhaler (OR & NICU) 2 puff INHALATION Q6H PRN 06/23/16 06/23/16 Unkn own [ProAir HFA Inhaler] Previous Rx's Medication Instructions Recorded Last Taken Type Ondansetron [Zofran Odt] 4 mg PO QID PRN #20 tab.rapdis 09/16/16 Unknown Rx Ondansetron [Zofran Odt] 4 mg PO Q8HR #12 tab.rapdis 06/23/17 Unknown Rx oxyCODONE [roxiCODONE] 5 mg PO Q6HR PRN #15 tablet 06/23/17 Unknown Rx Acetaminophen/Codeine [Tylenol 1 tab PO Q4HR PRN #15 tablet 01/17/19 Unknown Rx /Codeine # 3 tab] cephALEXin [Keflex] 500 mg PO Q6HR #20 capsule 01/17/19 Unknown Rx Allergies/Adverse Reactions: Allergies Allergy/AdvReac Type Severity Reaction Status Date / Time No Known Allergies Allergy Verified 02/05/18 16:45 ED Review of Systems ROS: Stated complaint: FEVER/VOMITING/PAIN INNER RT THIGH Other details as noted in HPI Comment: All other systems reviewed and negative Constitutional: denies: chills, fever Eyes: denies: eye pain, eye discharge, vision change ENT: denies: ear pain, throat pain Respiratory: denies: cough, shortness of breath, wheezing Cardiovascular: denies: chest pain, palpitations Skin: lesions ED Past Medical Hx - Past Medical History Hx Renal Disease: Yes (Stage 2) Hx Kidney Stones: Yes Hx Asthma: Yes Additional medical history: kidney stones - Surgical History Past Surgical History?: Yes Additional Surgical History: csections x 4. TUBAL LIGATION, kidney stones lasered - Social History Smoking Status: Current Every Day Smoker Substance Use Type: None - Medications Home Medications: Home Medications Medication Instructions Recorded Confirmed Last Taken Type ALBUTEROL Inhaler (OR & NICU) 2 puff INHALATION Q6H PRN 06/23/16 06/23/16 Unknown History [ProAir HFA Inhaler] Ondansetron [Zofran Odt] 4 mg PO QID PRN #20 tab.rapdis 09/16/16 Unknown Rx Ondansetron [Zofran Odt] 4 mg PO Q8HR #12 tab.rapdis 06/23/17 Unknown Rx oxyCODONE [roxiCODONE] 5 mg PO Q6HR PRN #15 tablet 06/23/17 Unknown Rx Acetaminophen/Codeine [Tylenol 1 tab PO Q4HR PRN #15 tablet 01/17/19 Unknown Rx /Codeine # 3 tab] cephALEXin [Keflex] 500 mg PO Q6HR #20 capsule 01/17/19 Unknown Rx ED Abscess Boil Physical Exam - Exam General: Vital signs noted. No distress. Alert and acting appropriately. Size: 2 cm Exam: Yes Tenderness, Yes Fluctuance, No Lymphangitis, No Crepitation, No Heart Murmur, No Normal Neurologic Exam Exam: Right inner thigh near the labia majora I & D Note - I & D Note I & D Note: DATE OF PROCEDURE: 01/17/2019. PREOPERATIVE DIAGNOSES: 1.soft tissue infection. . POSTOPERATIVE DIAGNOSES: 1. .........soft tissue infection. Infection appeared to be contained to subcutaneous tissue and there w as no evidence of necrotizing soft tissue infection including myonecrosis. OPERATION PERFORMED: Incision and drainage of ..... soft tissue abscess. Provider: Rita Singh PA-C. ANESTHESIA: Local. DESCRIPTION OF PROCEDURE: The patient was prepped and draped. Seropurulent, somewhat bloody fluid was noted. The infection appeared contained to a golf ball-sized area in the subcutaneous tissues above the fascia. There was no evidence of myonecrosis, penetration of the fascia or significant extent along the fascia of the infection. We cleaned the area with Betadine and then packed the wound . ......... Dry dressings were applied. The patient appeared to tolerate the procedure well. ED Course Vital Signs 01/17/19 19:54 Temperature 98.3 F Pulse Rate 97 H Respiratory 14 Rate Blood Pressure 104/75 O2 Sat by Pulse 100 Oximetry Critical care attestation.: If time is entered above; I have spent that time in minutes in the direct care of this critically ill patient, excluding procedure time. ED Disposition Clinical Impression: Abscess Disposition: DC-01 TO HOME OR SELFCARE Is pt being admited?: No Does the pt Need Aspirin: No Condition: Stable Instructions: Abscess (ED) Prescriptions: cephALEXin [Keflex] 500 mg PO Q6HR #20 capsule Acetaminophen/Codeine [Tylenol /Codeine # 3 tab] 1 tab PO Q4HR PRN #15 tablet PRN Reason: Pain Referrals: TREVON LEO MD [Primary Care Provider] - 3-5 Days Forms: Work/School Release Form(ED)
== END 2019-01-18 00:08 | disposition home or self-care (01) ==
LOC: ED 19:22
DX: L02.415 Cutaneous abscess of right lower limb (principal); J45.909 Unspecified asthma, uncomplicated; F17.200 Nicotine dependence, unspecified, uncomplicated; N18.2 Chronic kidney disease, stage 2 (mild)

== ENCOUNTER 2020-10-17 08:24 | Emergency (ER) | payer BC ==
[2020-10-17 08:30] VITALS: BP 122/100
[2020-10-17 10:14] LABS: Bilirubin,Urine NEG (Negative); Blood,Urine NEG (Negative); Color,Urine Yellow (Yellow); Mucus,Urine FEW /HPF; Protein,Urine <15 mg/dL mg/dL (Negative); Urobilinogen,Urine < 2.0 mg/dL (<2.0)
[2020-10-17] MEDS ORDERED: oxyCODONE /ACETAMINOPHEN 5-325MG TAB PO ONE (10:47)
--- NOTE | 2020-10-17 10:56 | Emergency Department Report ---
ED Abdominal Pain HPI - General Chief Complaint: Abdominal Pain Stated Complaint: KIDNEY PAIN/STOMACH/NAUSEA Time Seen by Provider: 10/17/20 10:30 Source: patient Mode of arrival: Ambulatory Limitations: No Limitations - History of Present Illness Initial Comments: 35-year-old female complaining of right flank pain started 2 days ago pain is radiating around to the right abdomen. Patient reports a history of kidney stones her last episode of kidney stone was 1 year ago. She complains of burning with urination. Patient also reports that she has kidney damage and cannot take Toradol. She denies cough fever nausea vomiting no chest pain no shortness of breath -: days(s) (2) Location: R flank Radiation: suprapubic Migration to: no migration Severity: moderate Quality: sharp Consistency: constant Improves With: nothing Worsens With: nothing Associated Symptoms: denies other symptoms. denies: nausea, vomiting, diarrhea, fever, chills, constipation Treatments Prior to Arrival: other (Burning with urination) - Related Data Home Medications Medication Instructions Recorded Confirmed Last Taken Albuterol Mdi (or & Nicu Only) 2 puff INHALATION Q6H PRN 06/23/16 06/23/16 Unknown [ProAir HFA Inhaler] Previous Rx's Medication Instructions Recorded Last Taken Type Ondansetron [Zofran Odt] 4 mg PO QID PRN #20 tab.rapdis 09/16/16 Unknown Rx Ondansetron [Zofran Odt] 4 mg PO Q8HR #12 tab.rapdis 06/23/17 Unknown Rx oxyCODONE [roxiCODONE] 5 mg PO Q6HR PRN #15 tablet 06/23/17 Unknown Rx Acetaminophen/Codeine [Tylenol 1 tab PO Q4HR PRN #15 tablet 01/17/19 Unknown Rx /Codeine # 3 tab] cephALEXin [Keflex] 500 mg PO Q6HR #20 capsule 01/17/19 Unknown Rx Allergies Allergy/AdvReac Type Severity Reaction Status Date / Time No Known Allergies Allergy Verified 10/17/20 09:54 ED Review of Systems ROS: Stated complaint: KIDNEY PAIN/STOMACH/NAUSEA Other details as noted in HPI Comment: All other systems reviewed and negative Constitutional: no symptoms reported Eyes: as per HPI ENT: denies: ear pain, throat pain, dental pain, hearing loss Respiratory: denies: cough, orthopnea, shortness of breath, SOB with exertion Cardiovascular: denies: chest pain, palpitations, dyspnea on exertion, edema, syncope, paroxysmal nocturnal dyspnea Endocrine: no symptoms reported. denies: excessive sweating, intolerance to cold, intolerance to heat Gastrointestinal: other (Right flank pain radiating to the right side of her abdomen and suprapubic region). denies: abdominal pain, nausea, vomiting Genitourinary: dysuria Skin: denies: rash Neurological: denies: headache, weakness, numbness, paresthesias, confusion Psychiatric: denies: anxiety, depression, auditory hallucinations, visual hallucinations, homicidal thoughts ED Past Medical Hx - Past Medical History Previous Medical History?: Yes Hx Renal Disease: Yes (Stage 2) Hx Kidney Stones: Yes Hx Asthma: Yes Additional medical history: kidney stones - Surgical History Past Surgical History?: Yes Additional Surgical History: csections x 4. TUBAL LIGATION, kidney stones lasered - Social History Smoking Status: Current Every Day Smoker Substance Use Type: None - Medications Home Medications: Home Medications Medication Instructions Recorded Confirmed Last Taken Type Albuterol Mdi (or & Nicu Only) 2 puff INHALATION Q6H PRN 06/23/16 06/23/16 Unknown History [ProAir HFA Inhaler] Ondansetron [Zofran Odt] 4 mg PO QID PRN #20 tab.rapdis 09/16/16 Unknown Rx Ondansetron [Zofran Odt] 4 mg PO Q8HR #12 tab.rapdis 06/23/17 Unknown Rx oxyCODONE [roxiCODONE] 5 mg PO Q6HR PRN #15 tablet 06/23/17 Unknown Rx Acetaminophen/Codeine [Tylenol 1 tab PO Q4HR PRN #15 tablet 01/17/19 Unknown Rx /Codeine # 3 tab] cephALEXin [Keflex] 500 mg PO Q6HR #20 capsule 01/17/19 Unknown Rx ED Physical Exam - General Limitations: No Limitations General appearance: alert, in no apparent distress - Head Head exam: Present: atraumatic - Eye Eye exam: Present: normal appearance - ENT ENT exam: Present: normal exam - Neck Neck exam: Present: normal inspection - Respiratory Respiratory exam: Present: normal lung sounds bilaterally. Absent: respiratory distress, wheezes, rales, rhonchi - Cardiovascular Cardiovascular Exam: Present: regular rate, normal heart sounds - GI/Abdominal GI/Abdominal exam: Present: soft, normal bowel sounds. Absent: distended, tenderness, guarding, rebound - Back Exam Back exam: Present: normal inspection, CVA tenderness (R). Absent: CVA tenderness (L), muscle spasm, paraspinal tenderness, vertebral tenderness - Neurological Exam Neurological exam: Present: alert, oriented X3 - Psychiatric Psychiatric exam: Present: normal affect - Skin Skin exam: Present: warm, dry, intact ED Course Vital Signs 10/17/20 10/17/20 08:28 11:55 Temperature 97.6 F Pulse Rate 90 Respiratory 20 20 Rate Blood Pressure 122/100 O2 Sat by Pulse 100 Oximetry ED Medical Decision Making - Lab Data Result diagrams: 10/17/20 11:11 10/17/20 11:11 - Radiology Data Radiology results: report reviewed CT ABDOMEN AND PELVIS WITHOUT CONTRAST INDICATION / CLINICAL INFORMATION: r/o kidney stone LEFT FLANK PAIN . TECHNIQUE: Axial CT images were obtained through the abdomen and pelvis without IV contrast. All CT scans at this location are performed using CT dose reduction for ALARA by means of automated exposure control. COMPARISON: CT abdomen pelvis 02/05/2018 FINDINGS: LOWER CHEST: Calcified granuloma in the right middle lobe. LIVER: No significant abnormality. GALLBLADDER: No significant abnormality. BILE DUCTS: No significant abnormality. PANCREAS: No significant abnormality. SPLEEN: No significant abnormality. ADRENALS: No significant abnormality. RIGHT KIDNEY and URETER: No significant abnormality. LEFT KIDNEY and URETER: No significant abnormality. STOMACH and SMALL BOWEL: No significant abnormality. COLON: No significant abnormality. APPENDIX: No significant abnormality. PERITONEUM: No free fluid. No free air. No fluid collection. LYMPH NODES: No significant adenopathy. AORTA and ARTERIES: No significant abnormality. IVC and VEINS: No significant abnormality. URINARY BLADDER: No significant abnormality. REPRODUCTIVE ORGANS: No significant abnormality. Bilateral tubal ligation clips. ADDITIONAL FINDINGS: None. SKELETAL SYSTEM: No significant abnormality. IMPRESSION: 1. No acute process identified within the abdomen or pelvis to account for left flank pain. There is no hydronephrosis or nephrolithiasis. - Medical Decision Making 35-year-old female with a history of kidney stones presents to the ER complaining of right flank pain and burning with urination. On examination her urine is negative for blood or any signs of infection. CT stone protocol reveals no nephrolithiasis or any other abnormalities. Blood work shows no abnormality in her renal function her MCV is 101 her MCH is 36 which is also elevated and her MCHC is also elevated. Her potassium is slightly elevated at 5.1. Patient in is in no acute distress Critical Care Time: No Critical care attestation.: If time is entered above; I have spent that time in minutes in the direct care of this critically ill patient, excluding procedure time. ED Disposition Clinical Impression: Right flank pain Disposition: DC-01 TO HOME OR SELFCARE Is pt being admited?: No Does the pt Need Aspirin: No Condition: Stable Instructions: Abdominal Pain (ED), Flank Pain, Adult, [id number] Additional Instructions: Your urine shows no signs of infection. The CAT scan that was done today shows no abnormality and no kidney stones. Your blood work showed increased levels of your MCV 101 MCH 36 MCHC 35. These numbers are slightly elevated. I suggest you follow-up with your primary care doctor for reevaluation. I would also suggest that you decrease your alcohol intake which includes wine. Drink plenty fluids at least 6 to 8 glasses/day for any other concerns please follow-up with your primary care doctor. You can take [id number] Tylenol 1 to 2 tablets every 4-6 hours as needed for pain Referrals: SALINAS PARKER MD [Primary Care Provider] - 3-5 Days DIONI YEH MD [Staff Physician] - 3-5 Days Time of Disposition: 12:30
[2020-10-17 11:22] LABS: Hematocrit 39.2 % (30.3-42.9); Hemoglobin 13.9 gm/dl (10.1-14.3); Mean Corpuscular HGB Conc 35 % (30-34); Mean Corpuscular Volume 101 fl (79-97); Platelet Count 191 K/mm3 (140-440); Red Blood Count 3.89 M/mm3 (3.65-5.03); Red Cell Distribution Width 12.7 % (13.2-15.2)
[2020-10-17 11:43] LABS: Blood Urea Nitrogen 13 mg/dL (7-17); Calcium 9.1 mg/dL (8.4-10.2); Hemolysis Index 41
[2020-10-17 11:45] LABS: BUN/Creatinine Ratio 26
--- NOTE | 2020-10-17 12:03 | Cat Scan Report ---
CT ABDOMEN AND PELVIS WITHOUT CONTRAST INDICATION / CLINICAL INFORMATION: r/o kidney stone LEFT FLANK PAIN . TECHNIQUE: Axial CT images were obtained through the abdomen and pelvis without IV contrast. All CT scans at [facility] location are performed using CT dose reduction for ALARA by means of automated exposure control. COMPARISON: CT abdomen pelvis 02/05/2018 FINDINGS: LOWER CHEST: Calcified granuloma in the right middle lobe. LIVER: No significant abnormality. GALLBLADDER: No significant abnormality. BILE DUCTS: No significant abnormality. PANCREAS: No significant abnormality. SPLEEN: No significant abnormality. ADRENALS: No significant abnormality. RIGHT KIDNEY and URETER: No significant abnormality. LEFT KIDNEY and URETER: No significant abnormality. STOMACH and SMALL BOWEL: No significant abnormality. COLON: No significant abnormality. APPENDIX: No significant abnormality. PERITONEUM: No free fluid. No free air. No fluid collection. LYMPH NODES: No significant adenopathy. AORTA and ARTERIES: No significant abnormality. IVC and VEINS: No significant abnormality. URINARY BLADDER: No significant abnormality. REPRODUCTIVE ORGANS: No significant abnormality. Bilateral tubal ligation clips. ADDITIONAL FINDINGS: None. SKELETAL SYSTEM: No significant abnormality. IMPRESSION: 1. No acute process identified within the abdomen or pelvis to account for left flank pain. There is no hydronephrosis or nephrolithiasis. Signer Name: Luana Mendoza MD Signed: 10/17/2020 11:59 AM Workstation Name: [id number]
== END 2020-10-17 12:41 | disposition home or self-care (01) ==
LOC: ED 08:24
DX: R10.2 Pelvic and perineal pain (principal); J45.909 Unspecified asthma, uncomplicated; F17.200 Nicotine dependence, unspecified, uncomplicated; Z98.890 Other specified postprocedural states; Z79.899 Other long term (current) drug therapy
CPT/HCPCS: 36415; 74176; 80048; 81001; 84703; 85027

== ENCOUNTER 2021-04-13 16:27 | Emergency (ER) | payer BC ==
[2021-04-13 16:36] VITALS: BP 134/97
[2021-04-13] MEDS ORDERED: SODIUM CHLORIDE 0.9% 1000 ML 1,000 ML IV ONE (18:09)
[2021-04-13] MEDS ORDERED: FAMOTIDINE 20 MG/2 ML INJ IV ONE (18:09)
[2021-04-13] MEDS ORDERED: ONDANSETRON 4 MG/2 ML INJ IV ONE (18:09)
[2021-04-13] MEDS ORDERED: ALUM-MAG HYDROXIDE-SIMETHICONE 200-200-20MG/5ML ORAL LIQD 30 ML PO ONE (18:10)
[2021-04-13] MEDS ORDERED: HYOSCYAMINE SUBL 0.125 MG TAB SL ONE (18:10)
[2021-04-13 18:46] LABS: Basophils % (Auto) 0.6 % (0.0-1.8); Eosinophils # (Auto) 0.2 K/mm3 (0.0-0.4); Eosinophils % (Auto) 2.3 % (0.0-4.3); Hematocrit 39.6 % (30.3-42.9); Hemoglobin 13.5 gm/dl (10.1-14.3); Lymphocytes # (Auto) 2.2 K/mm3 (1.2-5.4); Lymphocytes % (Auto) 30.6 % (13.4-35.0); Mean Corpuscular HGB Conc 34 % (30-34); Mean Corpuscular Volume 102 fl (79-97); Monocytes # (Auto) 0.6 K/mm3 (0.0-0.8); Monocytes % (Auto) 7.6 % (0.0-7.3); Platelet Count 190 K/mm3 (140-440); Red Blood Count 3.88 M/mm3 (3.65-5.03); Red Cell Distribution Width 12.6 % (13.2-15.2)
--- NOTE | 2021-04-13 18:47 | Emergency Department Report ---
ED General Adult HPI - General Chief complaint: Chest Pain Stated complaint: CHEST PAIN Time Seen by Provider: 04/13/21 17:42 Source: patient Mode of arrival: Ambulatory Limitations: No Limitations - History of Present Illness Initial comments: Patient presents to the emergency room with complaints of left upper quadrant and left-sided chest pain that began 3 days ago. She states it feels like a burning sensation. She states that she has been having multiple episodes of nausea, vomiting, diarrhea. She states that today she began having tingling in her left arm. She denies any shortness of breath, cough, hemoptysis, leg swelling, calf pain, hematochezia, melena, hematemesis. Past medical history of nephrolithiasis, CKD, asthma. No allergies to medications. - Related Data Home Medications Medication Instructions Recorded Confirmed Last Taken Albuterol Mdi (or & Nicu Only) 2 puff INHALATION Q6H PRN 06/23/16 06/23/16 Unknown [ProAir HFA Inhaler] Previous Rx's Medication Instructions Recorded Last Taken Type Ondansetron [Zofran Odt] 4 mg PO QID PRN #20 tab.rapdis 09/16/16 Unknown Rx Ondansetron [Zofran Odt] 4 mg PO Q8HR #12 tab.rapdis 06/23/17 Unknown Rx oxyCODONE [roxiCODONE] 5 mg PO Q6HR PRN #15 tablet 06/23/17 Unknown Rx Acetaminophen/Codeine [Tylenol 1 tab PO Q4HR PRN #15 tablet 01/17/19 Unknown Rx /Codeine # 3 tab] cephALEXin [Keflex] 500 mg PO Q6HR #20 capsule 01/17/19 Unknown Rx Famotidine [Pepcid] 40 mg PO QHS #30 tablet 04/13/21 Unknown Rx Hyoscyamine Subl [Levsin Sl 0.125 0.125 mg SL Q6HR PRN #10 tab 04/13/21 Unknown Rx TAB] Ondansetron [Zofran Odt] 4 mg PO Q8HR PRN #10 tab.rapdis 04/13/21 Unknown Rx Sucralfate [Carafate] 1 gm PO ACHS 7 Days #21 tablet 04/13/21 Unknown Rx Allergies Allergy/AdvReac Type Severity Reaction Status Date / Time No Known Allergies Allergy Verified 10/17/20 09:54 ED Review of Systems ROS: Stated complaint: CHEST PAIN Other details as noted in HPI Comment: All other systems reviewed and negative ED Past Medical Hx - Past Medical History Previous Medical History?: Yes Hx Renal Disease: Yes (Stage 2) Hx Kidney Stones: Yes Hx Asthma: Yes Additional medical history: kidney stones - Surgical History Past Surgical History?: Yes Additional Surgical History: csections x 4. TUBAL LIGATION, kidney stones lasered - Social History Smoking Status: Current Every Day Smoker Substance Use Type: None - Medications Home Medications: Home Medications Medication Instructions Recorded Confirmed Last Taken Type Albuterol Mdi (or & Nicu Only) 2 puff INHALATION Q6H PRN 06/23/16 06/23/16 Unknown History [ProAir HFA Inhaler] Ondansetron [Zofran Odt] 4 mg PO QID PRN #20 tab.rapdis 09/16/16 Unknown Rx Ondansetron [Zofran Odt] 4 mg PO Q8HR #12 tab.rapdis 06/23/17 Unknown Rx oxyCODONE [roxiCODONE] 5 mg PO Q6HR PRN #15 tablet 06/23/17 Unknown Rx Acetaminophen/Codeine [Tylenol 1 tab PO Q4HR PRN #15 tablet 01/17/19 Unknown Rx /Codeine # 3 tab] cephALEXin [Keflex] 500 mg PO Q6HR #20 capsule 01/17/19 Unknown Rx Famotidine [Pepcid] 40 mg PO QHS #30 tablet 04/13/21 Unknown Rx Hyoscyamine Subl [Levsin Sl 0.125 0.125 mg SL Q6HR PRN #10 tab 04/13/21 Unknown Rx TAB] Ondansetron [Zofran Odt] 4 mg PO Q8HR PRN #10 tab.rapdis 04/13/21 Unknown Rx Sucralfate [Carafate] 1 gm PO ACHS 7 Days #21 tablet 04/13/21 Unknown Rx ED Physical Exam - General Limitations: No Limitations General appearance: alert, in no apparent distress - Head Head exam: Present: atraumatic, normocephalic - Eye Eye exam: Present: normal appearance - ENT ENT exam: Present: mucous membranes moist - Respiratory Respiratory exam: Present: normal lung sounds bilaterally. Absent: respiratory distress, wheezes, rales, rhonchi, stridor, chest wall tenderness, accessory muscle use, decreased breath sounds, prolonged expiratory - Cardiovascular Cardiovascular Exam: Present: regular rate, normal rhythm, normal heart sounds. Absent: systolic murmur, diastolic murmur, rubs, gallop - GI/Abdominal GI/Abdominal exam: Present: soft, normal bowel sounds. Absent: distended, tenderness, guarding, rebound, rigid - Neurological Exam Neurological exam: Present: alert, oriented X3 - Psychiatric Psychiatric exam: Present: normal affect, normal mood - Skin Skin exam: Present: warm, dry, intact ED Course Vital Signs 04/13/21 16:35 Temperature 98.1 F Pulse Rate 106 H Respiratory 16 Rate Blood Pressure 134/97 [Right] O2 Sat by Pulse 98 Oximetry ED Medical Decision Making - Lab Data Result diagrams: 04/13/21 18:16 04/13/21 18:16 Lab Results 04/13/21 04/13/21 04/13/21 Range/Units 18:16 18:16 18:16 WBC 7.3 (4.5-11.0) K/mm3 RBC 3.88 (3.65-5.03) M/mm3 Hgb 13.5 (10.1-14.3) gm/dl Hct 39.6 (30.3-42.9) % MCV 102 H (79-97) fl MCH 35 H (28-32) pg MCHC 34 (30-34) % RDW 12.6 L (13.2-15.2) % Plt Count 190 (140-440) K/mm3 Lymph % (Auto) 30.6 (13.4-35.0) % Mcminn % (Auto) 7.6 H (0.0-7.3) % Eos % (Auto) 2.3 (0.0-4.3) % Baso % (Auto) 0.6 (0.0-1.8) % Lymph # (Auto) 2.2 (1.2-5.4) K/mm3 Mcminn # (Auto) 0.6 (0.0-0.8) K/mm3 Eos # (Auto) 0.2 (0.0-0.4) K/mm3 Baso # (Auto) 0.0 (0.0-0.1) K/mm3 Seg Neutrophils % 58.9 (40.0-70.0) % Seg Neutrophils # 4.3 (1.8-7.7) K/mm3 Sodium 137 (137-145) mmol/L Potassium 4.4 (3.6-5.0) mmol/L Chloride 100.4 (98-107) mmol/L Carbon Dioxide 24 (22-30) mmol/L Anion Gap 17 mmol/L BUN 19 H (7-17) mg/dL Creatinine 0.5 L (0.6-1.2) mg/dL Estimated GFR > 60 ml/min BUN/Creatinine Ratio 38 % Glucose 89 (65-100) mg/dL Calcium 9.2 (8.4-10.2) mg/dL Total Bilirubin 0.40 (0.1-1.2) mg/dL AST 21 (5-40) units/L ALT 25 (7-56) units/L Alkaline Phosphatase 93 (35-129) units/L Troponin T < 0.010 (0.00-0.029) ng/mL Total Protein 6.4 (6.3-8.2) g/dL Albumin 4.3 (3.9-5) g/dL Albumin/Globulin Ratio 2.0 % Lipase 17 (13-60) units/L HCG, Qual Negative (Negative) - EKG Data EKG shows normal: sinus rhythm, axis, intervals, QRS complexes, ST-T waves Rate: normal - Radiology Data Radiology results: report reviewed Ordering Physician: MADELIN SCHAEFFER Date of Service: 04/13/21 Procedure(s): XR chest routine 2V Accession Number(s): [id number] cc: MADELIN SCHAEFFER Fluoro Time In Minutes: CHEST 2 VIEWS INDICATION: Chest Pain. COMPARISON: none FINDINGS: Support devices: None. Heart: Within normal limits. Lungs/pleura: No acute air space or interstitial disease. No pneumothorax. Additional findings: None. IMPRESSION: No acute findings. Signer Name: Patrick Alonso Jr, MD Signed: 04/13/2021 8:24 PM Workstation Name: [id number] Transcribed By: TTR Dictated By: PATRICK ALONSO JR, MD Electronically Authenticated By: PATRICK ALONSO JR, MD Signed Date/Time: 04/13/212023 DD/ 23 TD/TT: - Medical Decision Making Patient presents to the emergency room with complaints of left upper quadrant and left-sided chest pain that began 3 days ago. She states it feels like a burning sensation. She states that she has been having multiple episodes of nausea, vomiting, diarrhea. She states that today she began having tingling in her left arm. She denies any shortness of breath, cough, hemoptysis, leg swelling, calf pain, hematochezia, melena, hematemesis. Past medical history of nephrolithiasis, CKD, asthma. No allergies to medications. Vitals are stable. No abdominal tenderness on exam, no guarding, no rebound, no rigidity, no peritoneal signs. Labs are stable. Troponin is negative. EKG is within normal limits. Chest x-ray No acute findings. Patient given medications on the emergency department with improvement of symptoms and she was able to tolerate p.o. intake. Advised patient Please take medication as prescribed. Increase your fluid intake. Follow-up with your primary care doctor. Follow-up with a GI doctor. Follow-up with a shelf drier operator. Return to emergency room for any new or worsening symptoms. Critical care attestation.: If time is entered above; I have spent that time in minutes in the direct care of this critically ill patient, excluding procedure time. ED Disposition Clinical Impression: Chest pain Qualifiers: Chest pain type: unspecified Qualified Code(s): R07.9 - Chest pain, unspecified Abdominal pain Qualifiers: Abdominal location: left upper quadrant Qualified Code(s): R10.12 - Left upper quadrant pain Disposition: 01 HOME / SELF CARE / HOMELESS Is pt being admited?: No Does the pt Need Aspirin: No Condition: Stable Instructions: Abdominal Pain, Adult, Nonspecific Chest Pain, Adult Additional Instructions: Please take medication as prescribed. Increase your fluid intake. Follow-up with your primary care doctor. Follow-up with a GI doctor. Follow-up with a shelf drier operator. Return to emergency room for any new or worsening symptoms. Prescriptions: Famotidine [Pepcid] 40 mg PO QHS #30 tablet Sucralfate [Carafate] 1 gm PO ACHS 7 Days #21 tablet Hyoscyamine Subl [Levsin Sl 0.125 TAB] 0.125 mg SL Q6HR PRN #10 tab PRN Reason: pain/diarrhea Ondansetron [Zofran Odt] 4 mg PO Q8HR PRN #10 tab.rapdis PRN Reason: nausea/vomiting Referrals: PRIMARY CARE, [Primary Care Provider] - 3-5 Days HERMELINDO MATOS MD [Staff Physician] - 3-5 Days [facility] [Provider Group] - 3-5 Days Time of Disposition: 20:46 Print Language: [place] HEART Score - HEART Score History: Slightly suspicious EKG: Normal Age: < 45 Risk factors: 1-2 risk factors Troponin: Troponin T < 0.010 ng/mL (0.00-0.029) 04/13/21 18:16 Troponin: < normal limit HEART Score: 1
[2021-04-13 18:59] LABS: Alanine Aminotransferase 25 units/L (7-56); Albumin 4.3 g/dL (3.9-5); Blood Urea Nitrogen 19 mg/dL (7-17); Calcium 9.2 mg/dL (8.4-10.2); Hemolysis Index 6
[2021-04-13 19:00] LABS: BUN/Creatinine Ratio 38
[2021-04-13] MEDS ORDERED: MORPHINE 4 MG/1 ML INJ IV ONE (20:13)
--- NOTE | 2021-04-13 20:28 | XRay Report ---
CHEST 2 VIEWS INDICATION: Chest Pain. COMPARISON: none FINDINGS: Support devices: None. Heart: Within normal limits. Lungs/pleura: No acute air space or interstitial disease. No pneumothorax. Additional findings: None. IMPRESSION: No acute findings. Signer Name: Patrick Alonso Jr, MD Signed: 04/13/2021 8:24 PM Workstation Name: [id number]
[2021-04-13] MEDS ORDERED: MORPHINE 2 MG/1 ML INJ IV ONE (21:00)
--- NOTE | 2021-04-15 10:23 | Electrocardiograph Report ---
[facility] Test Date: 2021-04-13 Test Time: 16:46:16 Pat Name: ALLEY VARGAS Department: Room: Gender: F Ui Developer: MICHAEL : 1985 Requested By: IRMA THOMAS Order Number: [id number] Reading MD: Esau Soto Measurements Intervals [place] Rate: 100 P: 66 GA: 157 QRS: 57 QRSD: 95 T: 51 QT: 369 QTc: 476 Interpretive Statements Sinus tachycardia No previous ECG available for comparison Electronically Signed On 04-15-2021 10:22:44 EST by Esau Soto
== END 2021-04-13 21:37 | disposition home or self-care (01) ==
LOC: ED 16:27
DX: R07.89 Other chest pain (principal); R10.12 Left upper quadrant pain; J45.909 Unspecified asthma, uncomplicated; F17.200 Nicotine dependence, unspecified, uncomplicated; Z98.51 Tubal ligation status; Z98.890 Other specified postprocedural states; Z87.442 Personal history of urinary calculi; Z79.899 Other long term (current) drug therapy
CPT/HCPCS: 36415; 71046; 80053; 83690; 84484; 84703; 85025; 93005; 96361; 96374; 96375; 99284; J2270; J2405; J3490; J7030; Q0162

== ENCOUNTER 2021-07-05 16:52 | Emergency (ER) | payer BC ==
[2021-07-05] MEDS ORDERED: HYDROcodone/ACETAMINOPHEN 5-325 MG TAB PO ONE (20:18)
--- NOTE | 2021-07-05 20:21 | Emergency Department Report ---
ED Chest Pain HPI - General Chief Complaint: Chest Pain Stated Complaint: CHEST/LT ARM PAIN/NAUSEA/LT BREAST PAIN Time Seen by Provider: 07/05/21 20:02 Source: patient, old records reviewed Mode of arrival: Ambulatory Limitations: No Limitations - History of Present Illness Initial Comments: 36-year female smoker with a past medical history of asthma presents to the hospital complaining of left sided chest pain for the past 2 days. Patient starts at the shoulder and goes across the chest under the breast. Pain is constant, and worse with movement and palpation. Pause associated shortness of breath or feel like she is going to pass out secondary to pain. Mild nausea reported without vomiting. No reports of diaphoresis. 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 Reports a family history CAD with dad having IL in his 50s. Positive history of DVT after giving 12 years ago. Patient denies current traveling, calf tenderness, leg edema, cough, fever, or control use. Patient status post tubal ligation 12 years ago. Patient states she cannot take NSAIDs due to chronic renal sufficiency secondary to recurrent kidney stones. As per medical record review patient has had normal creatinine in the past. Patient is unvaccinated for COVID. She reports she was Covid + December 2020 Severity scale (0 -10): 10 - Related Data Home Medications Medication Instructions Recorded Confirmed Last Taken RX: Albuterol Mdi (or & Nicu Only) 2 puff INHALATION Q6H PRN 06/23/16 07/05/21 Unknown [ProAir HFA Inhaler] Previous Rx's Medication Instructions Recorded Last Taken Type Ondansetron [Zofran Odt] 4 mg PO QID PRN #20 tab.rapdis 09/16/16 Unknown Rx Ondansetron [Zofran Odt] 4 mg PO Q8HR #12 tab.rapdis 06/23/17 Unknown Rx RX: oxyCODONE [roxiCODONE] 5 mg PO Q6HR PRN #15 tablet 06/23/17 Unknown Rx RX: Acetaminophen/Codeine [Tylenol 1 tab PO Q4HR PRN #15 tablet 01/17/19 Unknown Rx /Codeine # 3 tab] RX: cephALEXin [Keflex] 500 mg PO Q6HR #20 capsule 01/17/19 Unknown Rx Famotidine [Pepcid] 40 mg PO QHS #30 tablet 04/13/21 Unknown Rx Hyoscyamine Subl [Levsin Sl 0.125 0.125 mg SL Q6HR PRN #10 tab 04/13/21 Unknown Rx TAB] Ondansetron [Zofran Odt] 4 mg PO Q8HR PRN #10 tab.rapdis 04/13/21 Unknown Rx Sucralfate [Carafate] 1 gm PO ACHS 7 Days #21 tablet 04/13/21 Unknown Rx HYDROcodone/APAP 5-325 [Windber 1 each PO Q6HR PRN #10 tablet 07/05/21 Unknown Rx 5/325] Ibuprofen [Motrin] 800 mg PO Q8HR PRN #15 tablet 07/05/21 Unknown Rx Allergies Allergy/AdvReac Type Severity Reaction Status Date / Time No Known Allergies Allergy Verified 07/05/21 19:34 Heart Score - HEART Score History: Slightly suspicious EKG: Normal Age: < 45 Risk factors: 1-2 risk factors Troponin: < normal limit HEART Score: 1 - EKG Read Time Time EKG Completed: 17:21 EKG Read Time: 17:30 ED Review of Systems ROS: Stated complaint: CHEST/LT ARM PAIN/NAUSEA/LT BREAST PAIN Other details as noted in HPI Comment: All other systems reviewed and negative ED Past Medical Hx - Past Medical History Hx Renal Disease: Yes (Stage 2) Hx Kidney Stones: Yes Hx Asthma: Yes Additional medical history: kidney stones - Surgical History Additional Surgical History: csections x 4. TUBAL LIGATION, kidney stones lasered - Social History Smoking Status: Current Every Day Smoker Substance Use Type: None - Medications Home Medications: Home Medications Medication Instructions Recorded Confirmed Last Taken Type RX: Albuterol Mdi (or & Nicu Only) 2 puff INHALATION Q6H PRN 06/23/16 07/05/21 Unknown History [ProAir HFA Inhaler] Ondansetron [Zofran Odt] 4 mg PO QID PRN #20 tab.rapdis 09/16/16 07/05/21 Unknown Rx Ondansetron [Zofran Odt] 4 mg PO Q8HR #12 tab.rapdis 06/23/17 07/05/21 Unknown Rx RX: oxyCODONE [roxiCODONE] 5 mg PO Q6HR PRN #15 tablet 06/23/17 07/05/21 Unknown Rx RX: Acetaminophen/Codeine [Tylenol 1 tab PO Q4HR PRN #15 tablet 01/17/19 07/05/21 Unknown Rx /Codeine # 3 tab] RX: cephALEXin [Keflex] 500 mg PO Q6HR #20 capsule 01/17/19 07/05/21 Unknown Rx Famotidine [Pepcid] 40 mg PO QHS #30 tablet 04/13/21 07/05/21 Unknown Rx Hyoscyamine Subl [Levsin Sl 0.125 0.125 mg SL Q6HR PRN #10 tab 04/13/21 07/05/21 Unknown Rx TAB] Ondansetron [Zofran Odt] 4 mg PO Q8HR PRN #10 tab.rapdis 04/13/21 07/05/21 Unknown Rx Sucralfate [Carafate] 1 gm PO ACHS 7 Days #21 tablet 04/13/21 07/05/21 Unknown Rx HYDROcodone/APAP 5-325 [Windber 1 each PO Q6HR PRN #10 tablet 07/05/21 Unknown Rx 5/325] Ibuprofen [Motrin] 800 mg PO Q8HR PRN #15 tablet 07/05/21 Unknown Rx ED Physical Exam - General Limitations: No Limitations - Other Other exam information: General: No acute distress Head: Atraumatic Eyes: normal appearance ENT: Moist mucous membranes Neck: Normal appearance, no midline tenderness Chest: Clear to auscultation bilaterally, reproducible tenderness to the left chest to palpation of pectoralis muscle from the anterior chest up to the shoulder/axilla area. Pain also worse with movement CV: Tachycardic regular Abdomen: Soft, normal bowel sounds, nontender, nondistended, no rebound or guarding Back: Normal inspection Extremity: Normal inspection, full range of motion, no calf tenderness or leg edema Neuro: Alert O x 3, no facial asymmetry, speech clear, no gross motor sensory deficit Psych: Appropriate behavior Skin: No rash ED Course Vital Signs 07/05/21 07/05/21 07/05/21 17:08 19:32 19:43 Temperature 98.6 F 98.6 F Pulse Rate 101 H 90 Respiratory 18 20 Rate Blood Pressure Blood Pressure 137/98 143/91 [Right] O2 Sat by Pulse 99 99 97 Oximetry 07/05/21 20:35 Temperature 98.6 F Pulse Rate 90 Respiratory 20 Rate Blood Pressure 137/90 Blood Pressure [Right] O2 Sat by Pulse 98 Oximetry AUGUSTUS score - Augustus Score Age > 65: (0) No Aspirin use within the Past 7 Days: (0) No 3 or more CAD Risk Factors: (0) No 2 or more Angina events in past 24 hrs: (0) No Known CAD with more than 50% Stenosis: (0) No Elevated Cardiac Markers: (0) No ST Deviation Greater than 0.5mm: (0) No AUGUSTUS Score: 0 ED Medical Decision Making - Lab Data Result diagrams: 07/05/21 20:28 07/05/21 20: Lab Results 07/05/21 07/05/21 07/05/21 Range/Units 20: 20: 20: WBC 6.9 (4.5-11.0) K/mm3 RBC 4.06 (3.65-5.03) M/mm3 Hgb 14.0 (10.1-14.3) gm/dl Hct 41.5 (30.3-42.9) % MCV 102 H (79-97) fl MCH 35 H (28-32) pg MCHC 34 (30-34) % RDW 12.2 L (13.2-15.2) % Plt Count 193 (140-440) K/mm3 D-Dimer 162.60 (0-234) ng/mlDDU Sodium 140 (137-145) mmol/L Potassium 4.0 (3.6-5.0) mmol/L Chloride 100.4 (98-107) mmol/L Carbon Dioxide 25 (22-30) mmol/L Anion Gap 19 mmol/L BUN 17 (7-17) mg/dL Creatinine 0.5 L (0.6-1.2) mg/dL Estimated GFR > 60 ml/min BUN/Creatinine Ratio 34 % Glucose 106 H (65-100) mg/dL Calcium 9.5 (8.4-10.2) mg/dL Troponin T < 0.010 (0.00-0.029) ng/mL HCG, Qual (Negative) 07/05/21 Range/Units 20:28 WBC (4.5-11.0) K/mm3 RBC (3.65-5.03) M/mm3 Hgb (10.1-14.3) gm/dl Hct (30.3-42.9) % MCV (79-97) fl MCH (28-32) pg MCHC (30-34) % RDW (13.2-15.2) % Plt Count (140-440) K/mm3 D-Dimer (0-234) ng/mlDDU Sodium (137-145) mmol/L Potassium (3.6-5.0) mmol/L Chloride (98-107) mmol/L Carbon Dioxide (22-30) mmol/L Anion Gap mmol/L BUN (7-17) mg/dL Creatinine (0.6-1.2) mg/dL Estimated GFR ml/min BUN/Creatinine Ratio % Glucose (65-100) mg/dL Calcium (8.4-10.2) mg/dL Troponin T (0.00-0.029) ng/mL HCG, Qual Negative (Negative) - EKG Data -: EKG Interpreted by In EKG shows normal: sinus rhythm, ST-T waves (No STEMI) Rate: tachycardia (104) - Radiology Data Radiology results: report reviewed CHEST 2 VIEWS INDICATION / CLINICAL INFORMATION: Chest Pain. COMPARISON: 04/13/2021 FINDINGS: SUPPORT DEVICES: None. HEART / MEDIASTINUM: No significant abnormality. LUNGS / PLEURA: No significant pulmonary or pleural abnormality. No pneumothorax. ADDITIONAL FINDINGS: No significant additional findings. IMPRESSION: 1. No acute findings. - Medical Decision Making 36-year-old female presents to the hospital with left pectoralis pain and tenderness with palpation and movement. Patient performs heavy lifting at her job likely source of injury. Mild tachycardia likely secondary to pain. D- dimer negative with low pretest probability for PE, no signs of hypoxia, negative troponin, and no signs of ischemia with a low heart score. Patient does not have any signs of an insufficiency therefore will be treated with NSAIDs and Windber. Critical Care Time: No Critical care attestation.: If time is entered above; I have spent that time in minutes in the direct care of this critically ill patient, excluding procedure time. ED Disposition Clinical Impression: Strain of left pectoralis muscle Disposition: HOME / SELF CARE / HOMELESS Is pt being admited?: No Does the pt Need Aspirin: No Condition: Stable Instructions: Chest Wall Pain Additional Instructions: Take the medication as prescribed. Follow-up with your doctor or doctor/clinic provided. Return if symptoms worsen as indicated by your discharge instructions. Prescriptions: Ibuprofen [Motrin] 800 mg PO Q8HR PRN #15 tablet PRN Reason: Pain , Severe (7-10) HYDROcodone/APAP 5-325 [Windber 5/325] 1 each PO Q6HR PRN #10 tablet PRN Reason: Pain Referrals: PRIMARY CAREMD [Primary Care Provider] - 3-5 Days DIONI YEH MD [Staff Physician] - 3-5 Days Forms: Work/School Release Form(ED) Time of Disposition: 21:56
[2021-07-05 21:05] LABS: Hematocrit 41.5 % (30.3-42.9); Mean Corpuscular HGB Conc 34 % (30-34); Mean Corpuscular Volume 102 fl (79-97); Platelet Count 193 K/mm3 (140-440); Red Blood Count 4.06 M/mm3 (3.65-5.03); Red Cell Distribution Width 12.2 % (13.2-15.2)
[2021-07-05 21:29] LABS: Blood Urea Nitrogen 17 mg/dL (7-17); Calcium 9.5 mg/dL (8.4-10.2); Hemolysis Index 30
[2021-07-05 21:38] LABS: BUN/Creatinine Ratio 34
--- NOTE | 2021-07-05 21:46 | XRay Report ---
CHEST 2 VIEWS INDICATION / CLINICAL INFORMATION: Chest Pain. COMPARISON: 04/13/2021 FINDINGS: SUPPORT DEVICES: None. HEART / MEDIASTINUM: No significant abnormality. LUNGS / PLEURA: No significant pulmonary or pleural abnormality. No pneumothorax. ADDITIONAL FINDINGS: No significant additional findings. IMPRESSION: 1. No acute findings. Signer Name: Ricky Masters MD Signed: 07/05/2021 9:41 PM Workstation Name: [id number]
[2021-07-05 21:51] LABS: Basophils % (Manual) 0 % (0.0-1.8); Eosinophils % (Manual) 0 % (0.0-4.3); Total Cells Counted 100
[2021-07-05] MEDS ORDERED: KETOROLAC 60 MG/2 ML INJ IM ONE (21:51)
[2021-07-05 21:53] LABS: Platelet Estimate Consistent w Auto; RBC Morphology Normal
[2021-07-05 22:18] VITALS: BP 138/90
--- NOTE | 2021-07-08 13:06 | Electrocardiograph Report ---
[facility] Test Date: 2021-07-05 Test Time: 17:21:36 Pat Name: ALLEY VARGAS Department: Room: Gender: F Fisher Sponge Hooking: RAFAELA : 1985 Requested By: GOPI PABON Order Number: [id number] Reading MD: Esau Soto Measurements Intervals [place] Rate: 104 P: 50 MS: 143 QRS: 47 QRSD: 83 T: 47 QT: 353 QTc: 464 Interpretive Statements Sinus tachycardia Compared to ECG 04/13/2021 16:46:16 No significant changes Electronically Signed On 07-08-2021 13:05:44 EST by Esau Soto
== END 2021-07-05 22:17 | disposition home or self-care (01) ==
LOC: ED 16:52
DX: S29.011A Strain of muscle and tendon of front wall of thorax, initial encounter (principal); J45.909 Unspecified asthma, uncomplicated; F17.200 Nicotine dependence, unspecified, uncomplicated; X58.XXXA Exposure to other specified factors, initial encounter; Y93.89 Activity, other specified; Y92.89 Other specified places as the place of occurrence of the external cause; Y99.8 Other external cause status
CPT/HCPCS: 36415; 71046; 80048; 84484; 84703; 85007; 85025; 85379; 93005; 93010; 96372; 99284; J1885

== ENCOUNTER 2021-08-28 17:27 | Emergency (ER) | payer BC ==
[2021-08-28 18:12] LABS: Bacteria,Urine 1+ /HPF (Negative); Bilirubin,Urine NEG (Negative); Blood,Urine SM (Negative); Color,Urine Amber (Yellow)
[2021-08-28 18:44] LABS: Basophils # (Auto) 0.1 K/mm3 (0.0-0.1); Basophils % (Auto) 0.7 % (0.0-1.8); Eosinophils # (Auto) 0.1 K/mm3 (0.0-0.4); Eosinophils % (Auto) 1.8 % (0.0-4.3); Hematocrit 41.1 % (30.3-42.9); Hemoglobin 14.1 gm/dl (10.1-14.3); Lymphocytes # (Auto) 1.9 K/mm3 (1.2-5.4); Lymphocytes % (Auto) 28.2 % (13.4-35.0); Mean Corpuscular HGB Conc 34 % (30-34); Mean Corpuscular Volume 102 fl (79-97); Monocytes # (Auto) 0.6 K/mm3 (0.0-0.8); Platelet Count 212 K/mm3 (140-440); Red Blood Count 4.01 M/mm3 (3.65-5.03); Red Cell Distribution Width 12.8 % (13.2-15.2)
[2021-08-28 19:09] LABS: Alanine Aminotransferase 22 units/L (7-56); Albumin 4.8 g/dL (3.9-5); Blood Urea Nitrogen 17 mg/dL (7-17); Calcium 9.3 mg/dL (8.4-10.2); Hemolysis Index 8
[2021-08-28 19:33] LABS: BUN/Creatinine Ratio 28
[2021-08-28] MEDS ORDERED: ONDANSETRON 4 MG ODT TAB PO ONE (19:33)
[2021-08-28] MEDS ORDERED: KETOROLAC 60 MG/2 ML INJ IM ONE (19:33)
[2021-08-28] MEDS ORDERED: LIDOCAINE-MPF (1%) 10 MG/1 ML VIAL 5 ML INFILTRATI ONE (19:33)
--- NOTE | 2021-08-28 21:06 | Emergency Department Report ---
ED Abdominal Pain HPI - General Chief Complaint: Urogenital-Female Stated Complaint: AB PAIN/DISCHARGE/VOMITTING Source: patient Mode of arrival: Ambulatory Limitations: No Limitations - History of Present Illness Initial Comments: Patient is a A0 36-year-old female with history of PID, asthma, kidney stones and CKD stage II who presents to the ED with complaint of acute onset persistent suprapubic pain, dysuria, urinary frequency and urgency, nausea, hematuria, bilateral flank pain and vaginal discharge for the last 1 week, worse in the last 2 days. Patient states that she suspect she may been exposed to STD as well and wants to be treated for the same as well. Patient denies fever, chills, vomiting, diarrhea, dyspareunia, chest pain or shortness of breath, low back pain, vaginal bleeding, or headache and lightheadedness. MD Complaint: abdominal pain (Suprapubic pain), other (Dysuria, urinary frequency and urgency, hematuria, flank pain, vaginal discharge) -: Sudden, week(s) (1) Location: suprapubic Radiation: bilateral flank Migration to: no migration Severity scale (0 -10): 7 Quality: cramping, sharp Consistency: constant Improves With: nothing Worsens With: nothing Associated Symptoms: denies other symptoms, nausea. denies: vomiting, diarrhea, fever, chills, constipation, dysuria, hematochezia, melena, hematuria, anorexia, syncope, other - Related Data Home Medications Medication Instructions Recorded Confirmed Last Taken Albuterol Mdi (or & Nicu Only) 2 puff INHALATION Q6H PRN 06/23/16 07/05/21 Unknown [ProAir HFA Inhaler] Previous Rx's Medication Instructions Recorded Last Taken Type Ondansetron [Zofran Odt] 4 mg PO QID PRN #20 tab.rapdis 09/16/16 Unknown Rx oxyCODONE [roxiCODONE] 5 mg PO Q6HR PRN #15 tablet 06/23/17 Unknown Rx Acetaminophen/Codeine [Tylenol 1 tab PO Q4HR PRN #15 tablet 01/17/19 Unknown Rx /Codeine # 3 tab] cephALEXin [Keflex] 500 mg PO Q6HR #20 capsule 01/17/19 Unknown Rx Famotidine [Pepcid] 40 mg PO QHS #30 tablet 04/13/21 Unknown Rx Hyoscyamine Subl [Levsin Sl 0.125 0.125 mg SL Q6HR PRN #10 tab 04/13/21 Unknown Rx TAB] Ondansetron [Zofran Odt] 4 mg PO Q8HR PRN #10 tab.rapdis 04/13/21 Unknown Rx Sucralfate [Carafate] 1 gm PO ACHS 7 Days #21 tablet 04/13/21 Unknown Rx HYDROcodone/APAP 5-325 [Ballard 1 each PO Q6HR PRN #10 tablet 07/05/21 Unknown Rx 5/325] Ibuprofen [Motrin] 800 mg PO Q8HR PRN #15 tablet 07/05/21 Unknown Rx Doxycycline Hyclate 100 mg PO Q12H #28 cap 08/28/21 Unknown Rx Fluconazole [Diflucan TAB] 200 mg PO QDAY #2 tablet 08/28/21 Unknown Rx Ibuprofen [Motrin] 800 mg PO Q8HR PRN #30 tablet 08/28/21 Unknown Rx Ondansetron [Zofran ODT TAB] 4 mg PO Q8HR PRN #15 tab.rapdis 08/28/21 Unknown Rx metroNIDAZOLE [Flagyl] 500 mg PO Q12HR #20 tab 08/28/21 Unknown Rx Allergies Allergy/AdvReac Type Severity Reaction Status Date / Time No Known Allergies Allergy Verified 07/05/21 19:34 ED Review of Systems ROS: Stated complaint: AB PAIN/DISCHARGE/VOMITTING Other details as noted in HPI Constitutional: denies: chills, fever Eyes: denies: eye pain, eye discharge, vision change ENT: denies: ear pain, throat pain Respiratory: denies: cough, shortness of breath, wheezing Cardiovascular: denies: chest pain, palpitations Endocrine: no symptoms reported Gastrointestinal: abdominal pain (Suprapubic pain), nausea. denies: diarrhea Genitourinary: urgency, dysuria, frequency, hematuria, discharge. denies: abnormal menses, dyspareunia Musculoskeletal: denies: back pain, joint swelling, arthralgia Skin: denies: rash, lesions Neurological: denies: headache, weakness, paresthesias Psychiatric: denies: anxiety, depression Hematological/Lymphatic: denies: easy bleeding, easy bruising ED Past Medical Hx - Past Medical History Previous Medical History?: Yes Hx Renal Disease: Yes (Stage 2) Hx Kidney Stones: Yes Hx Asthma: Yes Additional medical history: kidney stones, UTI , PID - Surgical History Past Surgical History?: Yes Additional Surgical History: csections x 4. TUBAL LIGATION, kidney stones lasered - Social History Smoking Status: Current Every Day Smoker Substance Use Type: Alcohol - Medications Home Medications: Home Medications Medication Instructions Recorded Confirmed Last Taken Type Albuterol Mdi (or & Nicu Only) 2 puff INHALATION Q6H PRN 06/23/16 07/05/21 Unknown History [ProAir HFA Inhaler] Ondansetron [Zofran Odt] 4 mg PO QID PRN #20 tab.rapdis 09/16/16 07/05/21 Unknown Rx oxyCODONE [roxiCODONE] 5 mg PO Q6HR PRN #15 tablet 06/23/17 07/05/21 Unknown Rx Acetaminophen/Codeine [Tylenol 1 tab PO Q4HR PRN #15 tablet 01/17/19 07/05/21 Unknown Rx /Codeine # 3 tab] cephALEXin [Keflex] 500 mg PO Q6HR #20 capsule 01/17/19 07/05/21 Unknown Rx Famotidine [Pepcid] 40 mg PO QHS #30 tablet 04/13/21 07/05/21 Unknown Rx Hyoscyamine Subl [Levsin Sl 0.125 0.125 mg SL Q6HR PRN #10 tab 04/13/21 07/05/21 Unknown Rx TAB] Ondansetron [Zofran Odt] 4 mg PO Q8HR PRN #10 tab.rapdis 04/13/21 07/05/21 Unkn own Rx Sucralfate [Carafate] 1 gm PO ACHS 7 Days #21 tablet 04/13/21 07/05/21 Unknown Rx HYDROcodone/APAP 5-325 [Ballard 1 each PO Q6HR PRN #10 tablet 07/05/21 Unknown Rx 5/325] Ibuprofen [Motrin] 800 mg PO Q8HR PRN #15 tablet 07/05/21 Unknown Rx Doxycycline Hyclate 100 mg PO Q12H #28 cap 08/28/21 Unknown Rx Fluconazole [Diflucan TAB] 200 mg PO QDAY #2 tablet 08/28/21 Unknown Rx Ibuprofen [Motrin] 800 mg PO Q8HR PRN #30 tablet 08/28/21 Unknown Rx Ondansetron [Zofran ODT TAB] 4 mg PO Q8HR PRN #15 tab.rapdis 08/28/21 Unknown Rx metroNIDAZOLE [Flagyl] 500 mg PO Q12HR #20 tab 08/28/21 Unknown Rx ED Physical Exam - General Limitations: No Limitations General appearance: alert, in no apparent distress - Head Head exam: Present: atraumatic, normocephalic, normal inspection - Eye Eye exam: Present: normal appearance, PERRL, EOMI Pupils: Present: normal accommodation - ENT ENT exam: Present: normal exam, normal orophraynx, mucous membranes moist, TM's normal bilaterally, normal external ear exam - Neck Neck exam: Present: normal inspection, full ROM. Absent: tenderness - Respiratory Respiratory exam: Present: normal lung sounds bilaterally. Absent: respiratory distress, wheezes, chest wall tenderness, accessory muscle use, decreased breath sounds - Cardiovascular Cardiovascular Exam: Present: normal rhythm, tachycardia, normal heart sounds. Absent: systolic murmur, diastolic murmur, rubs, gallop - GI/Abdominal GI/Abdominal exam: Present: soft, tenderness (Palpable mild suprapubic tenderness), normal bowel sounds. Absent: guarding, rebound, hyperactive bowel sounds, hypoactive bowel sounds, mass - Bi-manual exam: Present: other (Pelvic exam deferred at this time) - Extremities Exam Extremities exam: Present: normal inspection, full ROM, normal capillary refill - Back Exam Back exam: Present: normal inspection, full ROM. Absent: tenderness, CVA tenderness (R), CVA tenderness (L), muscle spasm, paraspinal tenderness, vertebral tenderness - Neurological Exam Neurological exam: Present: alert, oriented X3, CN II-XII intact, normal gait, reflexes normal - Psychiatric Psychiatric exam: Present: normal affect, normal mood - Skin Skin exam: Present: warm, dry, intact, normal color. Absent: rash ED Course Vital Signs 08/28/21 08/28/21 08/28/21 17:38 17:41 18:56 Temperature 98.1 F 98.1 F Pulse Rate 117 H 110 H Respiratory 20 22 18 Rate Blood Pressure 141/100 141/100 O2 Sat by Pulse 98 98 99 Oximetry ED Medical Decision Making - Lab Data Result diagrams: 08/28/21 18:18 08/28/21 18:18 - Medical Decision Making This is a A0 36-year-old female with history of PID, asthma, kidney stones and CKD stage II who presents to the ED with complaint of acute onset persistent suprapubic pain, dysuria, urinary frequency and urgency, nausea, hematuria, bilateral flank pain and vaginal discharge for the last 1 week, worse in the last 2 days. Patient states that she suspect she may been exposed to STD as well and wants to be treated for the same as well. In the ED, patient is alert and oriented x3 and is not in any distress. Lab test results were reviewed and are all nonactionable except for significant urinary tract inf ection in urinalysis. Patient was treated for pain in the ED. Patient also received Rocephin 1 g IM x1. - Differential Diagnosis PID; UTI; pyelonephritis; kidney stone; STD Critical care attestation.: If time is entered above; I have spent that time in minutes in the direct care of this critically ill patient, excluding procedure time. ED Disposition Clinical Impression: Acute bilateral lower abdominal pain, Acute pelvic inflammatory disease, Acute urinary tract infection, Exposure to STD Disposition: 01 HOME / SELF CARE / HOMELESS Is pt being admited?: No Does the pt Need Aspirin: No Condition: Stable Instructions: Abdominal Pain, Adult, [id number], Urinary Tract Infection, Adult, [id number], Pelvic Inflammatory Disease, [id number] Additional Instructions: All lab test results were reviewed and are all nonactionable except for urin alysis that showed significant urinary tract infection. Therefore take medication with food, drink plenty of fluids and follow-up with your primary care physician in 7 to 10 days for reevaluation. Return to the ED immediately if symptoms get worse. Prescriptions: Fluconazole [Diflucan TAB] 200 mg PO QDAY #2 tablet Doxycycline Hyclate 100 mg PO Q12H #28 cap metroNIDAZOLE [Flagyl] 500 mg PO Q12HR #20 tab Ibuprofen [Motrin] 800 mg PO Q8HR PRN #30 tablet PRN Reason: Pain , Severe (7-10) Ondansetron [Zofran ODT TAB] 4 mg PO Q8HR PRN #15 tab.rapdis PRN Reason: Nausea Referrals: DIONI YEH MD [Primary Care Provider] - 3-5 Days Time of Disposition: 21:07 Print Language: IRISH
[2021-08-28 21:55] VITALS: BP 137/96
== END 2021-08-28 21:56 | disposition home or self-care (01) ==
LOC: ED 17:27
DX: R10.9 Unspecified abdominal pain (principal); N73.0 Acute parametritis and pelvic cellulitis; N39.0 Urinary tract infection, site not specified
CPT/HCPCS: 36415; 80053; 81001; 84703; 85025; 87086; 96372; 99283; J0696; J1885; J3490; Q0162

== ENCOUNTER 2021-09-14 09:32 | Emergency (ER) | payer BC ==
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
[2021-09-14 12:27] VITALS: BP 118/75
== END 2021-09-14 12:24 | disposition home or self-care (01) ==
LOC: ED 09:32
DX: T25.221A Burn of second degree of right foot, initial encounter (principal); F17.200 Nicotine dependence, unspecified, uncomplicated; F10.20 Alcohol dependence, uncomplicated; J45.909 Unspecified asthma, uncomplicated; X08.8XXA Exposure to other specified smoke, fire and flames, initial encounter; Y93.89 Activity, other specified; Y92.89 Other specified places as the place of occurrence of the external cause; Y99.8 Other external cause status
CPT/HCPCS: 99282

== ENCOUNTER 2022-01-18 17:12 | Emergency (ER) | payer BC ==
[2022-01-18 18:21] LABS: Mucus,Urine FEW /HPF
[2022-01-18 18:24] LABS: Color,Urine Straw (Yellow); HCG Qualitative,Urine Negative (Negative)
[2022-01-18 20:08] LABS: Basophils % (Auto) 0.5 % (0.0-1.8); Eosinophils # (Auto) 0.1 K/mm3 (0.0-0.4); Eosinophils % (Auto) 1.6 % (0.0-4.3); Hematocrit 42.6 % (30.3-42.9); Hemoglobin 14.3 gm/dl (10.1-14.3); Lymphocytes # (Auto) 2.3 K/mm3 (1.2-5.4); Lymphocytes % (Auto) 28.1 % (13.4-35.0); Mean Corpuscular HGB Conc 34 % (30-34); Mean Corpuscular Volume 107 fl (79-97); Monocytes # (Auto) 0.6 K/mm3 (0.0-0.8); Platelet Count 202 K/mm3 (140-440); Red Blood Count 3.99 M/mm3 (3.65-5.03); Red Cell Distribution Width 12.8 % (13.2-15.2)
[2022-01-18 20:39] LABS: Alanine Aminotransferase 40 units/L (7-56); Albumin 4.5 g/dL (3.9-5); Blood Urea Nitrogen 9 mg/dL (7-17); Calcium 9.1 mg/dL (8.4-10.2); Hemolysis Index 13
[2022-01-18 20:41] LABS: BUN/Creatinine Ratio 15
[2022-01-18] MEDS ORDERED: LIDOCAINE-MPF (1%) 10 MG/1 ML VIAL 5 ML INFILTRATI ONE (23:41)
[2022-01-18] MEDS ORDERED: AZITHROMYCIN 250 MG TAB PO ONE (23:41)
--- NOTE | 2022-01-19 00:18 | Emergency Department Report ---
ED Abdominal Pain HPI - General Chief Complaint: Abdominal Pain Stated Complaint: ABD PAIN, FEVER, NAUSEA, DIZZY CHEST PAIN Time Seen by Provider: 01/18/22 23:38 Source: patient Mode of arrival: Ambulatory Limitations: No Limitations - History of Present Illness Initial Comments: Patient 36-year-old female history of PID this who presents for bilateral lower abdominal pain and vaginal itching and burning states similar symptoms to PID episode a few months ago. Patient treated for UTI 2 months ago in ED. Patient denies vaginal discharge states pelvic pain however. Pain is exacerbated by movement and activity. Pain is relieved by nothing tried. Patient states current yeast infection treated with Diflucan. Concern for PID. Patient denies fevers or chills or nausea vomiting as noted in triage assessment. MD Complaint: abdominal pain - Related Data Home Medications Medication Instructions Recorded Confirmed Last Taken Albuterol Mdi (or & Nicu Only) 2 puff INHALATION Q6H PRN 06/23/16 07/05/21 Unknown [ProAir HFA Inhaler] Previous Rx's Medication Instructions Recorded Last Taken Type Ondansetron [Zofran Odt] 4 mg PO QID PRN #20 tab.rapdis 09/16/16 Unknown Rx oxyCODONE [roxiCODONE] 5 mg PO Q6HR PRN #15 tablet 06/23/17 Unknown Rx Acetaminophen/Codeine [Tylenol 1 tab PO Q4HR PRN #15 tablet 01/17/19 Unknown Rx /Codeine # 3 tab] cephALEXin [Keflex] 500 mg PO Q6HR #20 capsule 01/17/19 Unknown Rx Famotidine [Pepcid] 40 mg PO QHS #30 tablet 04/13/21 Unknown Rx Hyoscyamine Subl [Levsin Sl 0.125 0.125 mg SL Q6HR PRN #10 tab 04/13/21 Unknown Rx TAB] Ondansetron [Zofran Odt] 4 mg PO Q8HR PRN #10 tab.rapdis 04/13/21 Unknown Rx Sucralfate [Carafate] 1 gm PO ACHS 7 Days #21 tablet 04/13/21 Unknown Rx HYDROcodone/APAP 5-325 [[place] 1 each PO Q6HR PRN #10 tablet 07/05/21 Unknown Rx 5/325] Ibuprofen [Motrin] 800 mg PO Q8HR PRN #15 tablet 07/05/21 Unknown Rx Doxycycline Hyclate 100 mg PO Q12H #28 cap 08/28/21 Unknown Rx Fluconazole [Diflucan TAB] 200 mg PO QDAY #2 tablet 08/28/21 Unknown Rx Ibuprofen [Motrin] 800 mg PO Q8HR PRN #30 tablet 08/28/21 Unknown Rx Ondansetron [Zofran ODT TAB] 4 mg PO Q8HR PRN #15 tab.rapdis 08/28/21 Unknown Rx metroNIDAZOLE [Flagyl] 500 mg PO Q12HR #20 tab 08/28/21 Unknown Rx Acetaminophen/Codeine [Tylenol 1 tab PO Q6H PRN #14 tab 09/14/21 Unknown Rx /Codeine # 3 tab] Silver Sulfadiazine [Silvadene] 10 gm TP DAILY #500 gram 09/14/21 Unknown Rx Doxycycline Monohydrate 100 mg PO BID 7 Days #14 tab 01/19/22 Unknown Rx metroNIDAZOLE [Flagyl] 500 mg PO BID 7 Days #14 tab 01/19/22 Unknown Rx Allergies Allergy/AdvReac Type Severity Reaction Status Date / Time No Known Allergies Allergy Verified 01/18/22 17:52 ED Review of Systems ROS: Stated complaint: ABD PAIN, FEVER, NAUSEA, DIZZY CHEST PAIN Other details as noted in HPI Constitutional: denies: chills, fever Eyes: denies: eye pain, eye discharge, vision change ENT: denies: ear pain, throat pain Respiratory: denies: cough, shortness of breath, wheezing Cardiovascular: denies: chest pain, palpitations Endocrine: no symptoms reported Gastrointestinal: abdominal pain. denies: diarrhea, constipation Genitourinary: discharge (Itching erythema). denies: urgency, dysuria, frequency, hematuria Musculoskeletal: denies: back pain, joint swelling, arthralgia Skin: denies: rash, lesions Neurological: denies: headache, weakness, paresthesias Psychiatric: denies: anxiety, depression Hematological/Lymphatic: denies: easy bleeding, easy bruising ED Past Medical Hx - Past Medical History Hx Renal Disease: Yes (Stage 2) Hx Kidney Stones: Yes Hx Asthma: Yes Additional medical history: kidney stones, UTI , PID - Surgical History Additional Surgical History: csections x 4. TUBAL LIGATION, kidney stones laser ed - Social History Smoking Status: Current Every Day Smoker Substance Use Type: Alcohol - Medications Home Medications: Home Medications Medication Instructions Recorded Confirmed Last Taken Type Albuterol Mdi (or & Nicu Only) 2 puff INHALATION Q6H PRN 06/23/16 07/05/21 Unknown History [ProAir HFA Inhaler] Ondansetron [Zofran Odt] 4 mg PO QID PRN #20 tab.rapdis 09/16/16 07/05/21 Unknown Rx oxyCODONE [roxiCODONE] 5 mg PO Q6HR PRN #15 tablet 06/23/17 07/05/21 Unknown Rx Acetaminophen/Codeine [Tylenol 1 tab PO Q4HR PRN #15 tablet 01/17/19 07/05/21 Unknown Rx /Codeine # 3 tab] cephALEXin [Keflex] 500 mg PO Q6HR #20 capsule 01/17/19 07/05/21 Unknown Rx Famotidine [Pepcid] 40 mg PO QHS #30 tablet 04/13/21 07/05/21 Unknown Rx Hyoscyamine Subl [Levsin Sl 0.125 0.125 mg SL Q6HR PRN #10 tab 04/13/21 07/05/21 Unknown Rx TAB] Ondansetron [Zofran Odt] 4 mg PO Q8HR PRN #10 tab.rapdis 04/13/21 07/05/21 Unknown Rx Sucralfate [Carafate] 1 gm PO ACHS 7 Days #21 tablet 04/13/21 07/05/21 Unknown Rx HYDROcodone/APAP 5-325 [[place] 1 each PO Q6HR PRN #10 tablet 07/05/21 Unknown Rx 5/325] Ibuprofen [Motrin] 800 mg PO Q8HR PRN #15 tablet 07/05/21 Unknown Rx Doxycycline Hyclate 100 mg PO Q12H #28 cap 08/28/21 Unknown Rx Fluconazole [Diflucan TAB] 200 mg PO QDAY #2 tablet 08/28/21 Unknown Rx Ibuprofen [Motrin] 800 mg PO Q8HR PRN #30 tablet 08/28/21 Unknown Rx Ondansetron [Zofran ODT TAB] 4 mg PO Q8HR PRN #15 tab.rapdis 08/28/21 Unknown Rx metroNIDAZOLE [Flagyl] 500 mg PO Q12HR #20 tab 08/28/21 Unknown Rx Acetaminophen/Codeine [Tylenol 1 tab PO Q6H PRN #14 tab 09/14/21 Unknown Rx /Codeine # 3 tab] Silver Sulfadiazine [Silvadene] 10 gm TP DAILY #500 gram 09/14/21 Unknown Rx Doxycycline Monohydrate 100 mg PO BID 7 Days #14 tab 01/19/22 Unknown Rx metroNIDAZOLE [Flagyl] 500 mg PO BID 7 Days #14 tab 01/19/22 Unknown Rx ED Physical Exam - General Limitations: No Limitations General appearance: alert, in no apparent distress - Head Head exam: Present: normocephalic - Eye Eye exam: Present: EOMI Pupils: Present: normal accommodation - ENT ENT exam: Present: mucous membranes moist - Neck Neck exam: Present: normal inspection, full ROM. Absent: tenderness, lymphadenopathy - Respiratory Respiratory exam: Present: normal lung sounds bilaterally. Absent: respiratory distress, wheezes - Cardiovascular Cardiovascular Exam: Present: regular rate, normal rhythm, normal heart sounds. Absent: systolic murmur, diastolic murmur, rubs, gallop - GI/Abdominal GI/Abdominal exam: Present: soft, normal bowel sounds. Absent: distended, tenderness, guarding, rebound, rigid, bruit, hernia - Rectal Rectal exam: Present: deferred - Extremities Exam Extremities exam: Present: normal inspection, full ROM, normal capillary refill - Back Exam Back exam: Present: normal inspection, full ROM. Absent: CVA tenderness (R), CVA tenderness (L) - Neurological Exam Neurological exam: Present: alert, oriented X3, CN II-XII intact - Expanded Neurological Exam Expanded Patient oriented to: Present: person, place, time Speech: Present: fluid speech Motor strength exam: RUE: 5, LUE: 5, RLE: 5, LLE: 5 Best Eye Response ([place]): (4) open spontaneously Best Motor Response ([place]): (6) obeys commands Best Verbal Response ([place]): (5) oriented [place] Total: 15 - Psychiatric Psychiatric exam: Present: normal affect - Skin Skin exam: Present: warm, dry, intact, normal color. Absent: rash ED Course Vital Signs 01/18/22 17:49 Temperature 98.5 F Pulse Rate 97 H Respiratory 16 Rate Blood Pressure 145/102 O2 Sat by Pulse 99 Oximetry ED Medical Decision Making - Lab Data Result diagrams: 01/18/22 19:32 01/18/22 19:32 Labs 01/18/22 01/18/22 01/18/22 18:00 19:32 19:32 WBC 8.1 RBC 3.99 Hgb 14.3 Hct 42.6 MCV 107 H MCH 36 H MCHC 34 RDW 12.8 L Plt Count 202 Lymph % (Auto) 28.1 [place] % (Auto) 7.0 Eos % (Auto) 1.6 Baso % (Auto) 0.5 Lymph # (Auto) 2.3 [place] # (Auto) 0.6 Eos # (Auto) 0.1 Baso # (Auto) 0.0 Seg Neutrophils % 62.8 Seg Neutrophils # 5.1 Sodium 138 Potassium 4.2 Chloride 101.0 Carbon Dioxide 20 L Anion Gap 21 BUN 9 Creatinine 0.6 Estimated GFR > 60 BUN/Creatinine Ratio 15 Glucose 91 Calcium 9.1 Total Bilirubin 0.40 AST 39 ALT 40 Alkaline Phosphatase 97 Total Protein 6.6 Albumin 4.5 Albumin/Globulin Ratio 2.1 Urine Color Straw Urine Turbidity Clear Specific [place] (Man) 1.015 Ur Protein (Man) Negative Ur Ketones (Man) Negative Ur Nitrite (Man) Negative Ur Reducing Substances Not Reportable Urine Bilirubin (Man) Negative Urine Ictotest Not Reportable Leukocyte Esterase (Man) Negative Urine WBC (Auto) 1.0 Urine RBC (Auto) 1.0 U Epithel Cells (Auto) 4.0 Urine RBC (Manual) Negative Urine Mucus Few Urine HCG, Qual Negative - Medical Decision Making Labs noted as above. Patient DC'd to home with prescriptions. Diagnosis abdominal pain history of PID, patient will follow-up with [facility] in 2 to 3 days. Patient verbalized agreement and understanding with discharge plan. Patient DC'd home in stable condition at this time. Critical care attestation.: If time is entered above; I have spent that time in minutes in the direct care of this critically ill patient, excluding procedure time. ED Disposition Clinical Impression: History of PID Abdominal pain Qualifiers: Abdominal location: lower abdomen, unspecified Qualified Code(s): R10.30 - Lower abdominal pain, unspecified Disposition: 01 HOME / SELF CARE / HOMELESS Is pt being admited?: No Does the pt Need Aspirin: No Condition: Stable Instructions: Abdominal Pain (ED), Abdominal Pain, Adult Additional Instructions: Take medications as prescribed, do not drink alcohol with this medication. Follow-up with your doctor in 2 to 3 days. Return to emergency department should symptoms worsen. Prescriptions: Doxycycline Monohydrate 100 mg PO BID 7 Days #14 tab metroNIDAZOLE [Flagyl] 500 mg PO BID 7 Days #14 tab Referrals: AYDEE THOMAS MD [Staff Physician] - 3-5 Days Forms: Work/School Release Form(ED) Time of Disposition: 00:28
[2022-01-19] MEDS ORDERED: traMADol 50 MG TAB PO ONE (01:04)
[2022-01-19 02:04] VITALS: BP 134/89
== END 2022-01-19 20:03 | disposition home or self-care (01) ==
LOC: ED 17:12
DX: N73.9 Female pelvic inflammatory disease, unspecified (principal); R10.31 Right lower quadrant pain; R10.32 Left lower quadrant pain; R11.2 Nausea with vomiting, unspecified; J45.909 Unspecified asthma, uncomplicated; F17.200 Nicotine dependence, unspecified, uncomplicated; Z72.89 Other problems related to lifestyle; Z79.899 Other long term (current) drug therapy
CPT/HCPCS: 36415; 80053; 81001; 81025; 85025; 96372; 99283; J0696; J3490